=== PATIENT | female | born 1950 | race Caucasian/White ===

== ENCOUNTER 2020-05-02 10:54 | Outpatient (REF) | payer MEDICARE, OTHER, SELFPAY ==
--- NOTE | 2020-05-02 11:00 | MM_ITS ---
EXAMINATION: MM SCREENING DIGITAL BREAST TOMOSYNTHESIS, BILATERAL CLINICAL INFORMATION: Screening. Asymptomatic. The lifetime risk of breast cancer based on the Tyrer-Cuzick Model is 5.3%. COMPARISON: Mammography: January 30, 2019 and studies dating back to June 02, 2010 TECHNIQUE: Digital breast tomosynthesis is performed in both the craniocaudal and mediolateral oblique views along with computer-aided detection (CAD). Synthesized 2D images are generated from the tomosynthesis. FINDINGS: The breasts are almost entirely fatty (ACR BI-RADS breast composition Category a). There are no significant masses, abnormal calcifications, or other abnormalities. MM/MM tomosynthesis screening BI IMPRESSION: There are no significant changes from prior study. ASSESSMENT: BI-RADS 1: Negative RECOMMENDATION: Routine annual mammography screening. This patient's information was entered into a reminder system with a target due date for their next mammogram.
== END 2020-05-02 10:55 | disposition home or self-care (01) ==
LOC: HO.MAMMO 10:54
PROVIDERS: PCP Internal Medicine; Visit Provider Internal Medicine
DX: Z12.31 Encounter for screening mammogram for malignant neoplasm of breast (principal)
CPT/HCPCS: 77063; 77067

== ENCOUNTER 2020-05-06 06:14 | Outpatient (REF) | payer MEDICARE, OTHER, SELFPAY ==
[2020-05-06 07:24] LABS: MANUAL DIFF FLAG NO
[2020-05-06 07:26] LABS: Basophils Percent Auto 0.6 % (0-2); Eosinophils Percent Auto 0.2 % (0-4); Hematocrit 43.1 % (37-47); Hemoglobin 14.3 g/dl (12.0-16.0); Imm Gran Abs Auto 0.02 X10*3/uL (0.00-0.03); Imm Gran Pct Auto 0.3 % (0.0-0.4); Lymphocytes Absolute Auto 1.7 X10*3/uL (1.2-4.9); Lymphocytes Percent Auto 26.9 % (20-40); Mean Corpuscular HGB Conc 33.2 g/dl (31.0-35.0); Mean Corpuscular Hemoglobin 31.6 pg (27.0-33.0); Mean Corpuscular Volume 95.4 fL (80-98); Mean Platelet Volume 10.2 fL (9.4-12.3); Monocytes Absolute Auto 0.6 X10*3/uL (0.1-1.2); Monocytes Percent Auto 10.1 % (2-11); Neutrophils Absolute Auto 3.8 X10*3/uL (2.0-8.3); Neutrophils Percent Auto 61.9 % (45-73); Platelet Count 363 X10*3/uL (160-400); Red Blood Count 4.52 X10*6/uL (4.20-5.50); Red Cell Distribution Width 12.9 % (11.0-16.0); White Blood Count 6.2 X10*3/uL (4.8-10.8)
[2020-05-06 07:27] LABS: Glucose Urine UA NEG (NEG); Leukocyte Esterase Urine 2+ (NEG); Nitrite Urine NEG (NEG); PH 5.5 (5.0-8.0); Specific Gravity - Urine >= 1.030 (1.005-1.025); Urine Blood TRACE (NEG); Urine Ketones NEG (NEG); Urine Protein NEG (NEG-TRACE)
[2020-05-06 07:29] LABS: Appearance Urine CLOUDY; Color Urine YELLOW
[2020-05-06 07:44] LABS: Alanine Aminotransferase 12 U/L (0-31); Albumin Level 4.5 g/dL (3.5-5.0); Alkaline Phosphatase 71 U/L (39-117); Anion Gap 12 (12-20); Aspartate Amino Transferase 11 U/L (5-31); Bilirubin Total 0.6 mg/dL (0.0-1.0); Blood Urea Nitrogen 28 mg/dL (9-16); Calcium 9.9 mg/dL (8.4-10.2); Carbon Dioxide 25 mmol/L (22-29); Chloride 104 mmol/L (96-108); Cholesterol 289 mg/dL; Estimated Glomerular Filt Rate > 60; Glucose Fasting 85 mg/dL (60-99); HDL Cholesterol 65 mg/dL; Iron 125 mcg/dL (30-160); LDL Cholesterol Calculated 208 mg/dl; Percent Iron Saturation 39 % (15-50); Potassium 4.3 mmol/l (3.3-5.1); Sodium 137 mmol/L (135-145); Total Iron Binding Capacity 321 mcg/dL (228-428); Total Protein 6.8 g/dL (6.5-8.0); Triglycerides 84 mg/dL; Unsaturated Iron Binding 196 ug/dL
[2020-05-06 07:46] LABS: Alanine Aminotransferase 12 U/L (0-31); Albumin Level 4.5 g/dL (3.5-5.0); Alkaline Phosphatase 71 U/L (39-117); Anion Gap 12 (12-20); Aspartate Amino Transferase 13 U/L (5-31); Bilirubin Total 0.6 mg/dL (0.0-1.0); Blood Urea Nitrogen 27 mg/dL (9-16); Calcium 9.9 mg/dL (8.4-10.2); Carbon Dioxide 26 mmol/L (22-29); Chloride 104 mmol/L (96-108); Estimated Glomerular Filt Rate > 60; Glucose Fasting 85 mg/dL (60-99); Potassium 4.3 mmol/l (3.3-5.1); Sodium 138 mmol/L (135-145); Total Protein 6.8 g/dL (6.5-8.0)
[2020-05-06 07:49] LABS: Bacteria Urine 3+ /LPF; Mucus Urine TRACE /LPF; RBC Urine 0-2 /HPF (0); Squamous Epithelial Cell Urine 4+ /LPF
[2020-05-06 08:07] LABS: Vitamin D 25-OH Total 48.6 ng/mL (>30)
[2020-05-06 08:41] LABS: Ferritin 124 ng/mL (10-250)
== END 2020-05-06 06:15 | disposition home or self-care (01) ==
LOC: HO.LAB 06:14
PROVIDERS: PCP Internal Medicine; Visit Provider Internal Medicine
DX: E78.00 Pure hypercholesterolemia, unspecified (principal); M19.90 Unspecified osteoarthritis, unspecified site; Z83.2 Family history of diseases of the blood and blood-forming organs and certain disorders involving the immune mechanism
CPT/HCPCS: 36415; 80053; 80061; 81001; 82306; 82728; 83540; 85025

== ENCOUNTER 2020-05-08 09:39 | Outpatient (REF) | payer MEDICARE, OTHER, SELFPAY ==
--- NOTE | 2020-05-08 09:45 | MM_ITS ---
EXAMINATION: BONE DENSITOMETRY CLINICAL INDICATION: Osteopenia. COMPARISON: This is the patient's baseline examination. TECHNIQUE: Using a [employer] DXA System (software version: 13.1) manufactured by [employer], dual-energy x-ray absorptiometry was performed of the lumbar spine and left hip. The images are of good technical quality. Summary results are attached. FINDINGS: AP SPINE L1-L4: BMD 0.743 g/cm2, Z-score -2.2, T-score -3.6, osteoporosis. LEFT FEMUR, NECK: BMD 0.663 g/cm2, Z-score -1.2, T-score -2.7, osteoporosis. LEFT FEMUR, TOTAL: BMD 0.717 g/cm2, Z-score -1.0, T-score -2.3, osteopenia. IDENTIFIED RISK FACTORS: Hysterectomy, menopause. HISTORY OF FRACTURE: None listed. MEDICATIONS: Vitamin D. MM/XR DEXA axial skeleton IMPRESSION: 1. DIAGNOSIS: Osteoporosis based on the lowest T-score value of -3.6 in the lumbar spine applying World Health Organization criteria. 2. 10-YEAR FRACTURE RISK PREDICTION, FRAX: Major osteoporotic fracture (clinical spine, forearm, hip or shoulder) 15.8%. Hip fracture 4.2%. 3. Treatment Recommendations: NOF guidelines recommend consideration for treatment in postmenopausal women and men age 50 and older presenting with the following: -A hip or vertebral (clinical or morphometric) fracture. -T-score less than or equal to -2.5 at the femoral neck or spine after appropriate evaluation to exclude secondary causes. -Low bone mass at the hip or spine and a 10-year fracture probability by FRAX of greater than or equal to 3% for hip fracture or greater than or equal to 20% for major osteoporotic fracture based on the [place] adapted WHO algorithm. 4. Other Recommendations: All treatment decisions require clinical judgment and consideration of individual patient factors, including patient preferences, comorbidities, previous drug use, risk factors not captured in the FRAX model (e.g. frailty, falls, vitamin D deficiency, increased bone turnover, interval significant decline in bone density) and possible under or overestimation of fracture risk by FRAX. Additional medical evaluation for secondary cause of low bone mineral density may be appropriate. FUTURE SCAN RECOMMENDATION: People with diagnosed cases of osteoporosis or at high risk for fracture should have regular bone mineral density tests. For patients eligible for Medicare, routine testing is allowed once every 2 years. The testing frequency can be increased to one year for patients who have rapidly progressing disease, those who are receiving or discontinuing medical therapy to restore bone mass, or have additional risk factors.
== END 2020-05-08 09:40 | disposition home or self-care (01) ==
LOC: HO.MAMMO 09:39
PROVIDERS: PCP Internal Medicine; Visit Provider Internal Medicine
DX: Z78.0 Asymptomatic menopausal state (principal); M85.80 Other specified disorders of bone density and structure, unspecified site
CPT/HCPCS: 77080

== ENCOUNTER 2020-05-14 14:24 | Outpatient (REF) | payer MEDICARE, OTHER, SELFPAY | END 2020-05-14 14:25 | disposition home or self-care (01) | LOC: HO.LNP 14:24 | PROVIDERS: Visit Provider Internal Medicine | DX: Z20.828 Contact with and (suspected) exposure to other viral communicable diseases (principal) | CPT/HCPCS: U0003 ==

== ENCOUNTER 2020-10-13 10:10 | Day surgery (SDC) | payer MEDICARE, OTHER, SELFPAY ==
[2020-10-07 09:19] VITALS: BMI 27.4
--- NOTE | 2020-10-08 14:06 | MHC.SHP ---
Pre-Procedural Eval Section A The patient is an INPATIENT: No The History & Physical has been completed within 30 days and I have reviewed it.: Yes Section B Chief Complaint: Cataract Left eye Allergies: Allergies Allergy/AdvReac Type Severity Reaction Status Date / Time codeine Allergy Itching Verified 10/06/20 16:04 morphine Allergy Itching Verified 10/06/20 16:14 oxycodone [From Percocet] Allergy Itching Verified 10/06/20 16:04 Penicillins Allergy Itching Verified 10/06/20 16:04 Sulfa (Sulfonamide Allergy Itching Verified 10/06/20 16:14 Antibiotics) vancomycin Allergy Itching Verified 10/06/20 16:04 Lzzysba-Yre-Lvj Reductase AdvReac Gastrointestinal Verified 10/06/20 16:04 Inhibitor Upset Plan Diagnosis/Plan: Unchanged I have reviewed the history and physical and performed a pertinent physical examination on my patient. No changes have occurred unless specified.
--- NOTE | 2020-10-10 09:16 | HO.ANESPROP2 ---
Documented by User: Shilpa Garcia 10/10/20 09:17 HPI - Anesthesia Eval Consult details Narrative: 69yo F for Left Cataract Extraction IOL Insertion No prev cataract on record PCP cleared [facility] Past Medical History Medical History Arthritis COVID-19 vaccine series completed High cholesterol History of heartburn Surgical History Surgical History History of breast lump/mass excision History of hysterectomy History of total right hip replacement Hx of colonoscopy Social History Social History Are you a primary director of critical care to a significant other at home: No Do you presently have visiting nurse or other home services: No Smoking Status: Former smoker Smoking Quit Date: many years ago Use of substances other than those prescribed or required for medical reasons: No Are you DNR?: No Advance Directives: No Advance Directives Information Provided: No Advance Directives on File: No Recently lost weight without trying: No Eating poorly because of decreased appetite: No Nutrition Risks: No Nutritional Risk Patient : No Meds Allergies Allergy/AdvReac Type Severity Reaction Status Date / Time codeine Allergy Itching Verified 10/06/20 16:04 morphine Allergy Itching Verified 10/06/20 16:14 oxycodone [From Percocet] Allergy Itching Verified 10/06/20 16:04 Penicillins Allergy Itching Verified 10/06/20 16:04 Sulfa (Sulfonamide Allergy Itching Verified 10/06/20 16:14 Antibiotics) vancomycin Allergy Itching Verified 10/06/20 16:04 Kxwyivi-Liz-Uhf Reductase AdvReac Gastrointestinal Verified 10/06/20 16:04 Inhibitor Upset Home Medications Medication Instructions Recorded Confirmed Last Taken Type No Known Home Meds 10/06/20 10/06/20 Unknown History Exam Exam Date and Time: October 10, 2020 0916 Height,Weight and Vital Signs: Height 5 ft 4 in Weight 72.575 kg Assessment and Plan Assessment Anesthesia Assessment: Chart Reviewed Documented by User: Yesika Sena 10/13/20 12:07 [facility] Past Medical History Medical History Arthritis COVID-19 vaccine series completed High cholesterol History of heartburn Family History Family history of problems with anesthesia: No Surgical History Surgical History History of breast lump/mass excision History of hysterectomy History of total right hip replacement Hx of colonoscopy History of Problems with Anesthesia: No Social History Social History Are you a primary director of critical care to a significant other at home: No Do you presently have visiting nurse or other home services: No Smoking Status: Former smoker Smoking Quit Date: many years ago Use of substances other than those prescribed or required for medical reasons: No Are you DNR?: No Advance Directives: No Advance Directives Information Provided: No Advance Directives on File: No Recently lost weight without trying: No Eating poorly because of decreased appetite: No Nutrition Risks: No Nutritional Risk Patient : No Meds Allergies Allergy/AdvReac Type Severity Reaction Status Date / Time codeine Allergy Itching Verified 10/06/20 16:04 morphine Allergy Itching Verified 10/06/20 16:14 oxycodone [From Percocet] Allergy Itching Verified 10/06/20 16:04 Penicillins Allergy Itching Verified 10/06/20 16:04 Sulfa (Sulfonamide Allergy Itching Verified 10/06/20 16:14 Antibiotics) vancomycin Allergy Itching Verified 10/06/20 16:04 Lltznkz-Fbf-Krm Reductase AdvReac Gastrointestinal Verified 10/06/20 16:04 Inhibitor Upset Home Medications Medication Instructions Recorded Confirmed Last Taken Type No Known Home Meds 10/06/20 10/06/20 Unknown History Exam Height,Weight and Vital Signs: Vital Signs Temp Pulse Resp BP Pulse Ox 10/13/20 11:59 98.8 F 78 16 145/88 H 96 Airway Mallampati Class: III TM Dist: >3cm Neck ROM: Full Heart: RRR Lungs: CTAB Assessment and Plan Assessment Anesthesia Assessment: Anesthesia Plan Discussed and Chart Reviewed Final Anesthetic Review NPO: Yes ASA Class: II Final Preanesthetic Review: No Changes in Pt Med Stat, Meds/Allgs Chart Reviewed, Consent Obtained/Reviewed and Anes Risks/Benef Reviewed Patient Risk: Low Procedure Risk: Low Assessment/Block/Sedation in SS: Assess/Block/Sedation-SS Anesthetic Plan Anesthetic Plan: MAC: Disposition: Standard PACU
[2020-10-13] MEDS: Tetracaine HCl/PF 0.5% Oph Sol 4 ML DROPS 1 DROP EYE-LEFT (11:47)
[2020-10-13] MEDS: Lactated Ringers 500 ML 50 ML IV (11:48)
[2020-10-13] MEDS: Tropicamide 1 % Ophth Sol 3 ML BTL 1 DROP EYE-LEFT ×3 (11:50→12:07)
[2020-10-13] MEDS: Phenylephrine HCL 2.5% Oph SoL 2 ML BOTTLE 1 DROP EYE-LEFT ×3 (11:54→12:10)
[2020-10-13 11:59] VITALS: BP 145/88; PULSE 78; RESP 16; TEMP 37.1; O2SAT 96
--- NOTE | 2020-10-13 12:23 | HO.PNOPHT ---
Ophthalmology Procedure Procedure Date of Service: 10/13/20 Ophthalmology Viscoelastic: Healon Duet Dual Pack Pro Ophthalmology Lenses: TECRYLEE [id number] (20) Procedure Notes: PREOPERATIVE DIAGNOSIS: Decreased visual acuity left eye secondary to cataract POSTOPERATIVE DIAGNOSIS: Same PROCEDURE: Left cataract extraction with intraocular lens insertion SURGEON: Selvin Padron M.D. ANESTHESIA: Topical/MAC ESTIMATED BLOOD LOSS: None COMPLICATIONS: None After obtaining informed consent, the patient was brought to the operation room suite and placed in the supine position. After adequate sedation per anesthesia, topical drops of Tetracaine were given to the left eye. The eye was then prepped and draped in the usual sterile fashion. The operating room microscope was then positioned over the operative eye and a lid speculum placed. A paracentesis was created. Viscoelastic was then instilled into the anterior chamber. A three plane incision was then created temporally, utilizing a 2.85 mm keratome. Capsulotomy forceps were then utilized to create a circular tear capsulotomy. Hydrodissection and hydrodelineation were carried out until adequate mobilization of the nucleus occurred. Phacoemulsification was then utilized to remove the dense central nucleus followed by removal of the cortical material utilizing the automated aspiration irrigation unit. Viscoat elastic was instilled into the posterior capsular bag followed by placement of a posterior chamber intraocular lens without difficulty. The residual Viscoat elastic was then removed utilizing the automated IA machine. The wound was check and found to be watertight. The patient tolerated the procedure well and the lid speculum was removed. Intracameral injection of Vigamox 0.1 mL followed by a subtenon injection of Kenalog-40 0.2 mL were administered. The patient will be seen in the a.m.
[2020-10-13 12:48] VITALS: BP 138/63; PULSE 70; RESP 18; TEMP 36.7; O2SAT 100
== END 2020-10-13 13:31 | disposition home or self-care (01) ==
PROVIDERS: PCP Internal Medicine; Visit Provider Ophthalmology
PROC: (CPT 66985; principal; 2020-10-13 12:50)
DX: H25.12 Age-related nuclear cataract, left eye (principal); H54.7 Unspecified visual loss; Z87.891 Personal history of nicotine dependence; Z88.0 Allergy status to penicillin; Z88.2 Allergy status to sulfonamides; Z88.8 Allergy status to other drugs, medicaments and biological substances
CPT/HCPCS: 66984; J2250; J3300; V2632

== ENCOUNTER 2020-11-03 10:09 | Day surgery (SDC) | payer MEDICARE, OTHER, SELFPAY ==
[2020-10-07 09:22] VITALS: BMI 27.4
--- NOTE | 2020-10-17 11:07 | HP_ITS ---
DATE OF SERVICE: 11/03/2020 The patient was seen for preop evaluation prior cataract surgery with Dr. Martinez on October 06. Presently, she is on no medications. She feels well. REVIEW OF SYSTEMS: Essentially negative except for some occasional acid reflux disease. PAST MEDICAL HISTORY: Significant for hysterectomy, bladder suspension, and right total hip replacement. FAMILY HISTORY: Noncontributory. SOCIAL HISTORY: She is . Retired. Worked as a nurse. PHYSICAL EXAMINATION: GENERAL: She is awake and alert, in no distress. VITAL SIGNS: Temperature is 98.2, pulse 76, respirations 12, blood pressure 148/84, 98% oxygen saturation. HEENT: Pupils are equal. TMs clear. Pharynx clear. NECK: Supple. No lymph nodes, bruits, or masses. HEART: Sounds S1 and S2. Regular rate. LUNGS: Clear. ABDOMEN: Soft, nontender. Positive bowel sounds. No HSM. EXTREMITIES: No clubbing, cyanosis, or edema. 1+ pulses. NEUROLOGICAL: Nonfocal. Cranial nerves II through XII are intact. She is a nonsmoker. ALLERGIES: SHE LISTS ALLERGIES TO PENICILLIN, VANCOMYCIN, AND CODEINE. ASSESSMENT AND PLAN: 1. Preop cataracts, medically stable for the proposed procedure. 2. Elevated cholesterol, intolerant of statins. 3. Systolic hypertension. Continue to follow. 4. History of colon polyps, due for colonoscopy this year. 5. Diverticulosis. No complaints. 6. Osteoarthritis of the knees. She sees Ortho as needed. She also lists an allergy to sulfa drugs. Gabriel Smith MD FC/GWENL / [phone]
--- NOTE | 2020-10-29 15:38 | MHC.SHP ---
Pre-Procedural Eval Section A The patient is an INPATIENT: No The History & Physical has been completed within 30 days and I have reviewed it.: Yes Section B Chief Complaint: Cataract Right Eye Allergies: Allergies Allergy/AdvReac Type Severity Reaction Status Date / Time codeine Allergy Itching Verified 10/06/20 16:04 morphine Allergy Itching Verified 10/06/20 16:14 oxycodone [From Percocet] Allergy Itching Verified 10/06/20 16:04 Penicillins Allergy Itching Verified 10/06/20 16:04 Sulfa (Sulfonamide Allergy Itching Verified 10/06/20 16:14 Antibiotics) vancomycin Allergy Itching Verified 10/06/20 16:04 Ojoezbr-Uim-Wpe Reductase AdvReac Gastrointestinal Verified 10/06/20 16:04 Inhibitor Upset Plan Diagnosis/Plan: Unchanged I have reviewed the history and physical and performed a pertinent physical examination on my patient. No changes have occurred unless specified.
--- NOTE | 2020-10-31 10:15 | HO.ANESPROP2 ---
Documented by User: Shilpa Garcia 10/31/20 10:16 HPI - Anesthesia Eval Consult details Narrative: 69yo F for Right Cataract Extraction IOL Insertion PCP Cleared Left eye 10/13: Fent 50, Midaz 2 *mult med allergies* PMFSH Past Medical History Medical History Arthritis COVID-19 vaccine series completed High cholesterol History of heartburn Family History Family history of problems with anesthesia: No Surgical History Surgical History (Updated 10/30/20 @ 08:26 by Melony Bhatt) History of breast lump/mass excision History of cataract extraction History of hysterectomy History of total right hip replacement Hx of colonoscopy History of Problems with Anesthesia: No Social History Social History Are you a primary pharmacy customer care specialist to a significant other at home: No Do you presently have visiting nurse or other home services: No Use of substances other than those prescribed or required for medical reasons: No Have you been hit, kicked, punched, or otherwise hurt by someone within the past year? If so, by whom?: No Are you DNR?: No Advance Directives: No Advance Directives Information Provided: No Advance Directives on File: No Recently lost weight without trying: No Eating poorly because of decreased appetite: No Nutrition Risks: No Nutritional Risk Meds Allergies Allergy/AdvReac Type Severity Reaction Status Date / Time codeine Allergy Itching Verified 10/06/20 16:04 morphine Allergy Itching Verified 10/06/20 16:14 oxycodone [From Percocet] Allergy Itching Verified 10/06/20 16:04 Penicillins Allergy Itching Verified 10/06/20 16:04 Sulfa (Sulfonamide Allergy Itching Verified 10/06/20 16:14 Antibiotics) vancomycin Allergy Itching Verified 10/06/20 16:04 Bbddlbf-Thi-Xqb Reductase AdvReac Gastrointestinal Verified 10/06/20 16:04 Inhibitor Upset Home Medications Medication Instructions Recorded Confirmed Last Taken Type No Known Home Meds 10/06/20 10/06/20 Unknown History Exam Exam Date and Time: October 31, 2020 1015 Height,Weight and Vital Signs: Height 5 ft 4 in Weight 72.575 kg Assessment and Plan Assessment Anesthesia Assessment: Chart Reviewed Documented by User: Tricia Connie 11/03/20 11:14 PMF[facility] Past Medical History Medical History Arthritis COVID-19 vaccine series completed High cholesterol History of heartburn Surgical History Surgical History (Updated 10/30/20 @ 08:26 by Melony Bhatt) History of breast lump/mass excision History of cataract extraction History of hysterectomy History of total right hip replacement Hx of colonoscopy Social History Social History Are you a primary pharmacy customer care specialist to a significant other at home: No Do you presently have visiting nurse or other home services: No Use of substances other than those prescribed or required for medical reasons: No Have you been hit, kicked, punched, or otherwise hurt by someone within the past year? If so, by whom?: No Are you DNR?: No Advance Directives: No Advance Directives Information Provided: No Advance Directives on File: No Recently lost weight without trying: No Eating poorly because of decreased appetite: No Nutrition Risks: No Nutritional Risk Meds Allergies Allergy/AdvReac Type Severity Reaction Status Date / Time codeine Allergy Itching Verified 10/06/20 16:04 morphine Allergy Itching Verified 10/06/20 16:14 oxycodone [From Percocet] Allergy Itching Verified 10/06/20 16:04 Penicillins Allergy Itching Verified 10/06/20 16:04 Sulfa (Sulfonamide Allergy Itching Verified 10/06/20 16:14 Antibiotics) vancomycin Allergy Itching Verified 10/06/20 16:04 Gmblaok-Xeo-Dkn Reductase AdvReac Gastrointestinal Verified 10/06/20 16:04 Inhibitor Upset Home Medications Medication Instructions Recorded Confirmed Last Taken Type No Known Home Meds 10/06/20 10/06/20 Unknown History Exam Airway Mallampati Class: II (Crowns lateral) TM Dist: >3cm Neck ROM: Full Heart: RrR Lungs: CTa Assessment and Plan Assessment Anesthesia Assessment: Anesthesia Plan Discussed and Chart Reviewed Final Anesthetic Review NPO: Yes ASA Class: II Final Preanesthetic Review: No Changes in Pt Med Stat and Consent Obtained/Reviewed Patient Risk: Intermediate Procedure Risk: Intermediate Anesthetic Plan Anesthetic Plan: MAC: Disposition: Standard PACU
[2020-11-03] MEDS: Tetracaine HCl/PF 0.5% Oph Sol 4 ML DROPS 1 DROP EYE-RIGHT (10:57)
[2020-11-03 10:58] VITALS: BP 152/92; PULSE 83; RESP 16; TEMP 37.3; O2SAT 96
[2020-11-03] MEDS: Tropicamide 1 % Ophth Sol 3 ML BTL 1 DROP EYE-RIGHT ×3 (11:00→11:14)
[2020-11-03] MEDS: Phenylephrine HCL 2.5% Oph SoL 2 ML BOTTLE 1 DROP EYE-RIGHT ×3 (11:04→11:22)
[2020-11-03] MEDS: Lactated Ringers 500 ML 50 ML IV (11:04)
--- NOTE | 2020-11-03 12:10 | HO.PNOPHT ---
Ophthalmology Procedure Procedure Date of Service: 11/03/20 Ophthalmology Viscoelastic: Healon Duet Dual Pack Pro Ophthalmology Lenses: TECNIS [id number] (19.5) Procedure Notes: PREOPERATIVE DIAGNOSIS: Decreased visual acuity right eye secondary to cataract POSTOPERATIVE DIAGNOSIS: Same PROCEDURE: Right cataract extraction with intraocular lens insertion SURGEON: Selvin Padron M.D. ANESTHESIA: Topical/MAC ESTIMATED BLOOD LOSS: None COMPLICATIONS: None After obtaining informed consent, the patient was brought to the operating room suite and placed in the supine position. After adequate sedation per anesthesia, topical drops of Tetracaine were given to the right eye. The eye was then prepped and draped in the usual sterile fashion. The operating room microscope was then positioned over the operative eye and a lid speculum placed. A paracentesis was created. Viscoelastic was then instilled into the anterior chamber. A three plane incision was then created temporally, utilizing a 2.85 mm keratome. Capsulotomy forceps were then utilized to create a circular tear capsulotomy. Hydrodissection and hydrodelineation were carried out until adequate mobilization of the nucleus occurred. Phacoemulsification was then utilized to remove the dense central nucleus followed by removal of the cortical material utilizing the automated aspiration irrigation unit. Viscoelastic was instilled into the posterior capsular bag followed by placement of a posterior chamber intraocular lens without difficulty. The residual Viscoelastic was then removed utilizing the automated IA machine. The wound was checked and found to be watertight. The patient tolerated the procedure well and the lid speculum was removed. Intracameral injection of Vigamox 0.1 mL followed by a subtenon injection of Kenalog-40 0.2 mL were administered. The patient will be seen in the a.m.
[2020-11-03 12:33] VITALS: BP 133/79; PULSE 71; RESP 18; TEMP 36.6; O2SAT 99
== END 2020-11-03 13:50 | disposition home or self-care (01) ==
PROVIDERS: PCP Internal Medicine; Visit Provider Ophthalmology
PROC: (CPT 66985; principal; 2020-11-03 12:30)
DX: H25.11 Age-related nuclear cataract, right eye (principal); H52.4 Presbyopia; Q14.1 Congenital malformation of retina; K21.9 Gastro-esophageal reflux disease without esophagitis; Z87.891 Personal history of nicotine dependence; Z88.0 Allergy status to penicillin; Z88.1 Allergy status to other antibiotic agents; Z88.2 Allergy status to sulfonamides; Z88.8 Allergy status to other drugs, medicaments and biological substances
CPT/HCPCS: 66984; J3300; V2632

== ENCOUNTER 2021-06-09 11:59 | Outpatient (REF) | payer MEDICARE, OTHER, SELFPAY ==
--- NOTE | ~2021-06-09 | MM_ITS ---
EXAMINATION: MM SCREENING DIGITAL BREAST TOMOSYNTHESIS, BILATERAL CLINICAL INFORMATION: Screening. Asymptomatic. The lifetime risk of breast cancer based on the Tyrer-Cuzick Model is 4%. COMPARISON: Mammography: 05/02/2020, 01/30/2019, 11/18/2017 TECHNIQUE: Digital breast tomosynthesis is performed in both the craniocaudal and mediolateral oblique views along with computer-aided detection (CAD). Synthesized 2D images are generated from the tomosynthesis. FINDINGS: The breasts are almost entirely fatty (ACR BI-RADS breast composition Category a). There are no significant masses, abnormal calcifications, or other abnormalities. Background stromal and fibroglandular densities are stable. No developing density. There is a dermal lesion again seen overlying the mid lower right breast on MLO view. The axilla are unremarkable. MM/MM tomosynthesis screening BI IMPRESSION: No mammographic evidence of malignancy. ASSESSMENT: BI-RADS 2: Benign RECOMMENDATION: Routine annual mammography screening. This patient's information was entered into a reminder system with a target due date for their next mammogram.
== END 2021-06-09 12:00 | disposition home or self-care (01) ==
LOC: HO.MAMMO 11:59
PROVIDERS: PCP Internal Medicine; Visit Provider Internal Medicine
DX: Z12.31 Encounter for screening mammogram for malignant neoplasm of breast (principal)
CPT/HCPCS: 77063; 77067

== ENCOUNTER 2021-10-21 09:21 | Day surgery (SDC) | payer MEDICARE, OTHER, SELFPAY ==
[2021-10-15 12:06] VITALS: BMI 26.4
--- NOTE | 2021-10-20 09:19 | P.CONAN_ITS ---
Documented by User: Shilpa Garcia NP 10/20/21 09:19 HPI - Anesthesia Eval Consult details Narrative: 70yo F for Colonoscopy *Multiple Med Allergies* PMFSH Past Medical History Medical History Arthritis COVID-19 vaccine series completed High cholesterol History of heartburn Family History Family history of problems with anesthesia: No Surgical History Surgical History (Updated 10/15/21 @ 12:01 by Melony Bhatt RN) History of breast lump/mass excision History of cataract extraction History of hysterectomy History of total right hip replacement Hx of colonoscopy History of Problems with Anesthesia: No Social History Social History Are you a primary child care centre director to a significant other at home: No Do you presently have visiting nurse or other home services: No Patient Tobacco Use Status: Former Tobacco user Tobacco use type: Cigarette Smoked in Last 30 Days: No Use of substances other than those prescribed or required for medical reasons: No Are you DNR?: Yes Advance Directives: No Advance Directives Information Provided: Yes Recently lost weight without trying: No Nutrition Risks: No Nutritional Risk Meds Allergies Allergy/AdvReac Type Severity Reaction Status Date / Time codeine Allergy Itching Verified 10/15/21 12:01 morphine Allergy Itching Verified 10/15/21 12:01 oxycodone [From Percocet] Allergy Itching Verified 10/15/21 12:01 Penicillins Allergy Itching Verified 10/15/21 12:01 Sulfa (Sulfonamide Allergy Itching Verified 10/15/21 12:01 Antibiotics) vancomycin Allergy Itching Verified 10/15/21 12:01 Wveotrf-NLX-ZnS Reductase AdvReac Gastrointestinal Verified 10/15/21 12:01 Inhibitor Upset [Bsvxcge-Wbf-Czp Reductase Inhibitor] Home Medications Medication Instructions Recorded Confirmed Last Taken Type ibuprofen 200 mg tablet (Advil) 400 mg PO Q8H PRN 10/15/21 10/15/21 Unknown History Exam Exam Date and Time: October 20, [id number] Height,Weight and Vital Signs: Height 5 ft 4 in Weight 69.853 kg Assessment and Plan Assessment Anesthesia Assessment: Chart Reviewed Final Anesthetic Review Family History of Problems with Anesthesia: No History of Problems with Anesthesia: No Documented by User: Krzysztof Miller MD 10/21/21 17:31 PMFSH Past Medical History Medical History Arthritis COVID-19 vaccine series completed High cholesterol History of heartburn Surgical History Surgical History (Updated 10/15/21 @ 12:01 by Melony Bhatt, PRINCESS) History of breast lump/mass excision History of cataract extraction History of hysterectomy History of total right hip replacement Hx of colonoscopy Social History Social History Are you a primary child care centre director to a significant other at home: No Do you presently have visiting nurse or other home services: No Patient Tobacco Use Status: Former Tobacco user Tobacco use type: Cigarette Smoked in Last 30 Days: No Use of substances other than those prescribed or required for medical reasons: No Are you DNR?: Yes Advance Directives: No Advance Directives Information Provided: Yes Recently lost weight without trying: No Nutrition Risks: No Nutritional Risk Meds Allergies Allergy/AdvReac Type Severity Reaction Status Date / Time codeine Allergy Itching Verified 10/15/21 12:01 morphine Allergy Itching Verified 10/15/21 12:01 oxycodone [From Percocet] Allergy Itching Verified 10/15/21 12:01 Penicillins Allergy Itching Verified 10/15/21 12:01 Sulfa (Sulfonamide Allergy Itching Verified 10/15/21 12:01 Antibiotics) vancomycin Allergy Itching Verified 10/15/21 12:01 Smhmkvi-MGC-JkC Reductase AdvReac Gastrointestinal Verified 10/15/21 12:01 Inhibitor Upset [Maunvfl-Zrt-Usd Reductase Inhibitor] Home Medications Medication Instructions Recorded Confirmed Last Taken Type ibuprofen 200 mg tablet (Advil) 400 mg PO Q8H PRN 10/15/21 10/15/21 Unknown History Exam Airway Mallampati Class: III TM Dist: >3cm Neck ROM: Full Loose/Missing/Broken Teeth: Yes (Chipped teeth ) Heart: S1 , S2 Lungs: b/l breath sounds Assessment and Plan Assessment Anesthesia Assessment: Anesthesia Plan Discussed Final Anesthetic Review NPO: Yes ASA Class: II Final Preanesthetic Review: Meds/Allgs Chart Reviewed, Consent Obtained/Reviewed and Anes Risks/Benef Reviewed Patient Risk: Intermediate Procedure Risk: Intermediate Anesthetic Plan Anesthetic Plan: MAC: Disposition: Standard PACU
--- NOTE | ~2021-10-21 | CT_ITS ---
EXAMINATION: CT COLONOGRAPHY SCREENING CLINICAL INFORMATION: Incomplete colonoscopy. Diverticulosis COMPARISON: None. TECHNIQUE: CT colonography. Helical images of the abdomen and pelvis were performed using a Multidetector device after gas insufflation in the supine and prone positions. Source data was reviewed. Extensive 3-D postprocessing was performed on a separate workstation. 2-D and 3-D analysis was performed. Endoluminal, virtual fly through technique was utilized. The endoluminal, virtual postprocessing could only be performed on the prone series DLP: 448 mGy-cm. FINDINGS: Digital Customer Sales Distributor: There has been previous right hip replacement which causes artifact. Bowel preparation: Suboptimal. There is a large amount retained fecal residue and fluid. This limits the exam Distention: Suboptimal distention. On the supine series the rectal to may not be within the rectum. No immediate complication was reported. Colonic findings: The supine series is essentially nondiagnostic. The retained fecal residue, fluid and incomplete distention preclude assessment for colonic masses or polyps. The prone series demonstrates gas within most of the colon. There is sigmoid wall thickening with muscular hypertrophy and luminal narrowing and there are numerous diverticula. No large colonic mass or polyp demonstrated. Noncolonic findings: There is a small hiatal hernia. There is an approximately 2.2 cm calcified gallstone. Artifact related to right hip replacement. CT/CT colonography dx wo con IMPRESSION: Limited study. Retained fecal residue, fluid and incomplete distention preclude assessment for small or moderate-sized abnormalities. Sigmoid diverticula. No large mass or polyp demonstrated
[2021-10-21 09:44] VITALS: BMI 25.2
[2021-10-21 09:51] VITALS: BP 148/88; PULSE 82; RESP 16; TEMP 36.8; O2SAT 100
[2021-10-21] MEDS: Lactated Ringers 1,000 ML 100 ML IVCONT (10:16)
--- NOTE | 2021-10-21 12:07 | P.BOP_ITS ---
Brief Operative Note Date of Service: 10/21/21 Pre-op diagnosis: Screening Post-op diagnosis: other (Diverticulosis) Procedure: Incomplete colonoscopy to 30cm Surgeon: Efrem Ling Anesthesia: MAC Was an Fabric And Accessories Estimator used for this Procedure?: No Estimated blood loss (mL): 0 Pathology: none sent Condition: stable Disposition: PACU
[2021-10-21 12:08] VITALS: BP 127/73; PULSE 75; RESP 16; TEMP 36.7; O2SAT 97
[2021-10-21 12:13] VITALS: BP 111/70; PULSE 64; RESP 18; TEMP 36.7; O2SAT 98
--- NOTE | 2021-10-21 12:30 | OP_ITS ---
SURGEON: Efrem Ling MD INDICATIONS: The patient presents for evaluation of colorectal cancer screening and prior history of tubular adenoma of the colon. Full consent was obtained from her for this, including risks of bleeding and perforation. PREOPERATIVE DIAGNOSIS: POSTOPERATIVE DIAGNOSIS: PROCEDURE PERFORMED: Colonoscopy to the sigmoid colon. ESTIMATED BLOOD LOSS: COMPLICATIONS: ANESTHESIA: Monitored anesthesia care. ASSISTANTS: SPECIMENS: PREOPERATIVE DIAGNOSES: Colorectal cancer screening and personal history of tubular adenoma of the colon. POSTOPERATIVE DIAGNOSES: Colorectal cancer screening and personal history of tubular adenoma of the colon, incomplete colonoscopy to the sigmoid colon, diverticulosis and internal hemorrhoids. DESCRIPTION OF PROCEDURE: The patient was placed in the left lateral decubitus position. The digital rectal exam revealed no abnormalities. The Olympus video pediatric colonoscope was entered into the rectum and advanced only to between 20 and 30 cm. At this level was extensive diverticulosis and spasm. Despite abdominal wall pressure, and lengthy attempt advancing past the sigmoid colon, I was unable to do so. I never really saw proximal lumen. I did not visualize any sign of colitis, polyps, nor angiodysplasia. The scope was retroflexed in the rectum visualizing internal hemorrhoids, but no other pathology. The rectal mucosa appeared normal. The scope was straightened and withdrawn from the patient. She tolerated the procedure well and was returned to recovery area in stable condition. IMPRESSION: 1. Incomplete colonoscopy to the sigmoid colon. 2. Diverticulosis. 3. Internal hemorrhoids. PLAN: Given that she has already been cleaned out, I shall attempt to schedule a CT scan with colonography. She will be followed up after that as needed. If the colonography is negative and she otherwise feels well, then she would not need any further screening colonoscopies given exams previously in 2004, 2010, and 2015. This has been discussed with her . MD LEIA Reyes/LAKSMHI / [id number]
== END 2021-10-21 15:01 | disposition home or self-care (01) ==
PROVIDERS: PCP Internal Medicine; Visit Provider Internal Medicine
PROC: 0DJD8ZZ Inspection of Lower Intestinal Tract, Via Natural or Artificial Opening Endoscopic (ICD-10-PCS; CPT 45378; principal; 2021-10-21 10:40)
DX: Z12.11 Encounter for screening for malignant neoplasm of colon (principal); Z86.010 Personal history of colon polyps; K57.30 Diverticulosis of large intestine without perforation or abscess without bleeding; K64.8 Other hemorrhoids; K44.9 Diaphragmatic hernia without obstruction or gangrene; K80.80 Other cholelithiasis without obstruction; Z96.641 Presence of right artificial hip joint; Z79.1 Long term (current) use of non-steroidal anti-inflammatories (NSAID); Z88.0 Allergy status to penicillin; Z88.1 Allergy status to other antibiotic agents; Z88.2 Allergy status to sulfonamides; Z88.8 Allergy status to other drugs, medicaments and biological substances; Z87.891 Personal history of nicotine dependence
CPT/HCPCS: G0104; 74261

== ENCOUNTER 2022-02-08 08:19 | Day surgery (SDC) | payer MEDICARE, SELFPAY ==
[2022-02-08 08:57] VITALS: BMI 24.7
[2022-02-08 09:02] VITALS: BP 159/94; PULSE 99; RESP 18; TEMP 37.3; O2SAT 99
--- NOTE | 2022-02-08 09:08 | HO.ANESPROP2 ---
HPI - Anesthesia Eval Consult details Narrative: 71 yo female patient for colonoscopy [facility] Past Medical History Medical History Arthritis COVID-19 vaccine series completed High cholesterol History of heartburn Family History Family history of problems with anesthesia: No Surgical History Surgical History History of breast lump/mass excision History of cataract extraction History of hysterectomy History of total right hip replacement Hx of colonoscopy History of Problems with Anesthesia: No Social History Social History Are you a primary critical care registered nurse to a significant other at home: No Do you presently have visiting nurse or other home services: No Patient Tobacco Use Status: Former Tobacco user Tobacco use type: Cigarette Use of substances other than those prescribed or required for medical reasons: No Have you been hit, kicked, punched, or otherwise hurt by someone within the past year? If so, by whom?: No Are you DNR?: No Advance Directives: No Advance Directives Information Provided: Yes Meds Allergies Allergy/AdvReac Type Severity Reaction Status Date / Time codeine Allergy Itching Verified 02/02/22 14:23 morphine Allergy Itching Verified 02/02/22 14:23 oxycodone [From Percocet] Allergy Itching Verified 02/02/22 14:23 Penicillins Allergy Itching Verified 02/02/22 14:23 Sulfa (Sulfonamide Allergy Itching Verified 02/02/22 14:23 Antibiotics) vancomycin Allergy Itching Verified 02/02/22 14:23 Nwxphww-KHZ-PyY Reductase AdvReac Gastrointestinal Verified 02/02/22 14:23 Inhibitor Upset [Mlrzlfv-Oyg-Wgr Reductase Inhibitor] Home Medications Medication Instructions Recorded Confirmed Last Taken Type ibuprofen 200 mg tablet (Advil) 400 mg PO Q8H PRN Pain 10/15/21 10/15/21 Unknown History Exam Exam Date and Time: February 08, 202208 Height,Weight and Vital Signs: Height 5 ft 4 in Weight 65.317 kg Vital Signs Temp Pulse Resp BP Pulse Ox O2 Del Method 02/08/22 09:02 99.2 F 99 18 159/94 H 99 Room Air Airway Mallampati Class: III TM Dist: >3cm Neck ROM: Full Loose/Missing/Broken Teeth: No (Crowns sides) Heart: RRR Lungs: CTAB Assessment and Plan Assessment Anesthesia Assessment: Anesthesia Plan Discussed and Chart Reviewed Final Anesthetic Review Family History of Problems with Anesthesia: No History of Problems with Anesthesia: No NPO: Yes ASA Class: II Final Preanesthetic Review: No Changes in Pt Med Stat, Meds/Allgs Chart Reviewed, Consent Obtained/Reviewed and Anes Risks/Benef Reviewed Patient Risk: Low Procedure Risk: Low Assessment/Block/Sedation in SS: Assess/Block/Sedation-SS Anesthetic Plan Anesthetic Plan: MAC: Disposition: Standard PACU
[2022-02-08] MEDS: Lactated Ringers 1,000 ML 100 ML IVCONT (09:28)
[2022-02-08 10:23] VITALS: BP 112/57; PULSE 70; RESP 16; TEMP 36.6; O2SAT 97
--- NOTE | 2022-02-08 10:26 | PM.OP ---
Brief Operative Note Date of Service: 02/08/22 Pre-op diagnosis: + Cologuard Post-op diagnosis: other (Diverticulosis, Mucosal inflammation in cecum) Procedure: Colonoscopy to the cecum and TI with biopsies Surgeon: Efrem Ling Anesthesia: MAC Was an Classroom Technology Technician used for this Procedure?: No Estimated blood loss (mL): 2.0 Pathology: other (A. Cecal biopsies) Condition: stable Disposition: PACU
[2022-02-08 10:36] VITALS: BP 124/40; PULSE 67; RESP 16; O2SAT 98
[2022-02-08 10:50] VITALS: BP 126/60; PULSE 60; RESP 16; TEMP 36.8; O2SAT 98
--- NOTE | 2022-02-08 11:02 | OP_ITS ---
02/08/2022 SURGEON: Efrem Ling MD INDICATIONS: The patient presents for evaluation of positive Cologuard test. Full consent has been obtained from her for this, including risks of bleeding and perforation. PREOPERATIVE DIAGNOSIS: Positive Cologuard. POSTOPERATIVE DIAGNOSIS: PROCEDURE PERFORMED: Colonoscopy to cecum and terminal ileum. ESTIMATED BLOOD LOSS: COMPLICATIONS: ANESTHESIA: Monitored anesthesia care. ASSISTANTS: SPECIMENS: POSTOPERATIVE DIAGNOSES: Positive Cologuard, diverticulosis, internal hemorrhoids, mucosal inflammation of the cecum. DESCRIPTION OF PROCEDURE: The patient was placed in the left lateral decubitus position. The digital rectal exam revealed no abnormalities. The Olympus video pediatric colonoscope was entered into the rectum and advanced to the cecum. Advancement past the sigmoid colon was somewhat difficult due to the significant diverticulosis and probable adhesions. However, once in the cecum, I did identify a normal-appearing cecal pouch other than a single area on a fold that had some inflammation and edema, but was not consistent with a mass nor neoplasm. The terminal ileum was cannulated and appeared normal. The scope withdrawn back in the colon. The ileocecal valve appeared normal. Biopsies were obtained from the small area of mucosal inflammation. The remainder of the cecum appeared normal. The scope was then slowly withdrawn assessing all mucosal surfaces carefully. Preparation was excellent. I did not visualize any sign of polyps, colitis, nor angiodysplasia. There was a significant amount of diverticulosis in the sigmoid colon. In the rectum, the scope was retroflexed visualizing internal hemorrhoids but no other pathology. The rectal mucosa appeared normal. The scope was straightened and withdrawn from the patient. She tolerated the procedure well and was returned to the recovery area in stable condition. IMPRESSION: 1. Diverticulosis. 2. Internal hemorrhoids. 3. Area of some mucosal inflammation in cecum, status post biopsy. PLAN: Theoretically the patient should have a repeat colonoscopy in 5 years given her previous history of tubular adenoma of the colon removed in 2004 and 2010. She will otherwise see me on a p.r.n. basis. This has been discussed with her . MD LEIA Reyes/LAKSHMI / [id number] VARSHA
== END 2022-02-08 12:00 | disposition home or self-care (01) ==
PROVIDERS: PCP Internal Medicine; Visit Provider Internal Medicine
PROC: 0DJD8ZZ Inspection of Lower Intestinal Tract, Via Natural or Artificial Opening Endoscopic (ICD-10-PCS; CPT 45378; principal; 2022-02-08 09:30)
DX: R19.5 Other fecal abnormalities (principal); K57.30 Diverticulosis of large intestine without perforation or abscess without bleeding; K64.8 Other hemorrhoids; K52.9 Noninfective gastroenteritis and colitis, unspecified; Z86.010 Personal history of colon polyps
CPT/HCPCS: 45380; 88305

== ENCOUNTER 2022-06-14 11:42 | Outpatient (REF) | payer MEDICARE, SELFPAY ==
--- NOTE | ~2022-06-14 | MM_ITS ---
EXAMINATION: MM SCREENING DIGITAL BREAST TOMOSYNTHESIS, BILATERAL CLINICAL INFORMATION: Screening. Asymptomatic. The lifetime risk of breast cancer based on the Tyrer-Cuzick Model is 4%. COMPARISON: Mammography: 06/09/2021, 05/02/2020, 01/30/2019 TECHNIQUE: Digital breast tomosynthesis is performed in both the craniocaudal and mediolateral oblique views along with computer-aided detection (CAD). Synthesized 2D images are generated from the tomosynthesis. FINDINGS: The breasts are almost entirely fatty (ACR BI-RADS breast composition Category a). Background stromal and fibroglandular densities are similar to prior studies. There is no developing density or architectural abnormality. No interval dominant nodularity or abnormal calcifications. The axilla and skin contours are unremarkable. No significant changes. MM/MM tomosynthesis screening BI IMPRESSION: No mammographic evidence of malignancy. ASSESSMENT: BI-RADS 2: Benign RECOMMENDATION: Routine annual mammography screening. This patient's information was entered into a reminder system with a target due date for their next mammogram.
== END 2022-06-14 11:43 | disposition home or self-care (01) ==
LOC: HO.MAMMO 11:42
PROVIDERS: PCP Internal Medicine; Visit Provider Internal Medicine
DX: Z12.31 Encounter for screening mammogram for malignant neoplasm of breast (principal)
CPT/HCPCS: 77063; 77067

== ENCOUNTER 2022-08-03 08:02 | Outpatient (REF) | payer MEDICARE, SELFPAY ==
--- NOTE | ~2022-08-03 | MM_ITS ---
EXAMINATION: BONE DENSITOMETRY CLINICAL INDICATION: Osteoporosis. COMPARISON: Baseline BD dated 05/08/2020. TECHNIQUE: Using a Enject DXA System (software version: 13.1) manufactured by [employer], dual-energy x-ray absorptiometry was performed of the lumbar spine and left hip. The images are of good technical quality. Summary results are attached. FINDINGS: AP SPINE L1-L4: Current: BMD 0.725 g/cm2, Z-score -2.3, T-score -3.8, osteoporosis, 2.4% decrease from baseline (<5% change is not significant). Baseline: BMD 0.743 g/cm2. LEFT FEMUR, NECK: Current: BMD 0.691 g/cm2, Z-score -0.9, T-score -2.5, osteoporosis. Baseline: BMD 0.663 g/cm2. LEFT FEMUR, TOTAL: Current: BMD 0.729 g/cm2, Z-score -0.8, T-score -2.2, osteopenia, 1.7% increase from baseline (<5% change is not significant). Baseline: BMD 0.717 g/cm2. IDENTIFIED RISK FACTORS: Osteoporosis. Menopause. Hysterectomy. HISTORY OF FRACTURE: None listed. MEDICATIONS: Calcium supplement or multivitamin. Vitamin D. MM/XR DEXA axial skeleton IMPRESSION: 1. DIAGNOSIS: Osteoporosis based on the lowest T-score value of -3.8 in the lumbar spine applying World Health Organization criteria. 2. 10-YEAR FRACTURE RISK PREDICTION, FRAX: According to the guidelines, FRAX calculation should only be performed on patients in the osteopenia bone density category. Therefore, FRAX was not performed on this patient.? 3. Treatment Recommendations: NOF guidelines recommend consideration for treatment in postmenopausal women and men age 50 and older presenting with the following: -A hip or vertebral (clinical or morphometric) fracture. -T-score less than or equal to -2.5 at the femoral neck or spine after appropriate evaluation to exclude secondary causes. -Low bone mass at the hip or spine and a 10-year fracture probability by FRAX of greater than or equal to 3% for hip fracture or greater than or equal to 20% for major osteoporotic fracture based on the [place] adapted WHO algorithm. 4. Other Recommendations: All treatment decisions require clinical judgment and consideration of individual patient factors, including patient preferences, comorbidities, previous drug use, risk factors not captured in the FRAX model (e.g. frailty, falls, vitamin D deficiency, increased bone turnover, interval significant decline in bone density) and possible under or overestimation of fracture risk by FRAX. Additional medical evaluation for secondary cause of low bone mineral density may be appropriate. FUTURE SCAN RECOMMENDATION: People with diagnosed cases of osteoporosis or at high risk for fracture should have regular bone mineral density tests. For patients eligible for Medicare, routine testing is allowed once every 2 years. The testing frequency can be increased to one year for patients who have rapidly progressing disease, those who are receiving or discontinuing medical therapy to restore bone mass, or have additional risk factors.
== END 2022-08-03 08:03 | disposition home or self-care (01) ==
LOC: HO.MAMMO 08:02
PROVIDERS: PCP Internal Medicine; Visit Provider Internal Medicine
DX: Z13.820 Encounter for screening for osteoporosis (principal); Z78.0 Asymptomatic menopausal state
CPT/HCPCS: 77080

== ENCOUNTER 2023-06-16 08:23 | Outpatient (REF) | payer MEDICARE, OTHER, SELFPAY ==
--- NOTE | ~2023-06-16 | MM_ITS ---
EXAMINATION: MM SCREENING DIGITAL BREAST TOMOSYNTHESIS, BILATERAL CLINICAL INFORMATION: Screening. Asymptomatic. COMPARISON: Mammography: This study is compared with prior exams dating back to 2018. TECHNIQUE: Digital breast tomosynthesis is performed in both the craniocaudal and mediolateral oblique views along with computer-aided detection (CAD). Synthesized 2D images are generated from the tomosynthesis. FINDINGS: There are scattered areas of fibroglandular density (ACR BI-RADS breast composition Category b). There are no significant masses, abnormal calcifications, or other abnormalities. There are few, bilateral, coarse, benign calcifications present MM/MM tomosynthesis screening BI IMPRESSION: No mammographic evidence of malignancy. ASSESSMENT: BI-RADS BI-RADS 2 - Benign Findings RECOMMENDATION: Routine annual mammography screening. 1 year F/U This examination should not preclude the clinical evaluation of a suspicious palpable abnormality. This patient's information was entered into a reminder system with a target due date for their next mammogram.
== END 2023-06-16 08:24 | disposition home or self-care (01) ==
LOC: HO.MAMMO 08:23
PROVIDERS: PCP Internal Medicine; Visit Provider Internal Medicine
DX: Z12.31 Encounter for screening mammogram for malignant neoplasm of breast (principal)
CPT/HCPCS: 77063; 77067

== ENCOUNTER → 2023-06-16 08:45 | Outpatient (BNV) | payer MEDICARE, OTHER, SELFPAY | PROVIDERS: PCP Internal Medicine; Visit Provider Radiology Diagnostic Radiology | DX: Z12.31 Encounter for screening mammogram for malignant neoplasm of breast (principal) | CPT/HCPCS: 77063; 77067 ==

== ENCOUNTER 2024-06-06 06:15 | Outpatient (REF) | payer MEDICARE, OTHER, SELFPAY ==
[2024-06-06 06:34] LABS: MANUAL DIFF FLAG NO
[2024-06-06 07:17] LABS: Basophils Percent Auto 0.8 % (0-2); Eosinophils Absolute Auto 0.1 X10*3/uL (0.0-0.4); Eosinophils Percent Auto 1.6 % (0-4); Hematocrit 41.5 % (37.0-47.0); Imm Gran Abs Auto 0.01 X10*3/uL (0.00-0.03); Imm Gran Pct Auto 0.2 % (0.0-0.4); Lymphocytes Absolute Auto 1.3 X10*3/uL (1.2-4.9); Lymphocytes Percent Auto 24.6 % (20-40); Mean Corpuscular HGB Conc 33.7 g/dl (31.0-35.0); Mean Corpuscular Volume 94.7 fL (80.0-98.0); Mean Platelet Volume 10.9 fL (9.4-12.3); Monocytes Absolute Auto 0.5 X10*3/uL (0.1-1.2); Monocytes Percent Auto 9.3 % (2-11); Neutrophils Absolute Auto 3.2 x10*3/uL (2.0-8.3); Neutrophils Percent Auto 63.5 % (45-73); Platelet Count 286 X10*3/uL (160-400); Red Blood Count 4.38 X10*6/uL (4.20-5.50); Red Cell Distribution Width 12.9 % (11.0-16.0); White Blood Count 5.1 X10*3/uL (4.8-10.8)
[2024-06-06 07:50] LABS: Alanine Aminotransferase 20 U/L (0-31); Albumin Level 4.4 g/dL (3.5-5.0); Anion Gap 13 (12-20); Aspartate Amino Transferase 22 U/L (5-31); Bilirubin Total 0.4 mg/dL (0.0-1.0); Blood Urea Nitrogen 15 mg/dL (9-16); Calcium 10.2 mg/dL (8.4-10.2); Carbon Dioxide 25 mmol/L (22-29); Chloride 106 mmol/L (96-108); Cholesterol 240 mg/dL (<200); Estimated Glomerular Filt Rate > 60; Glucose Fasting 88 mg/dL (60-99); HDL Cholesterol 62 mg/dL (>40); LDL Cholesterol Calculated 159 mg/dL (<100); Potassium 3.7 mmol/L (3.3-5.1); Sodium 140 mmol/L (135-145); Total Protein 6.9 g/dL (6.5-8.0); Triglycerides 99 mg/dL (<150)
[2024-06-06 08:01] LABS: Alkaline Phosphatase 68 U/L (39-117); Vitamin D 25-OH Total 38.1 ng/mL (>30)
== END 2024-06-06 06:16 | disposition home or self-care (01) ==
LOC: HO.LAB 06:15
PROVIDERS: PCP Internal Medicine; Visit Provider Internal Medicine
DX: M81.0 Age-related osteoporosis without current pathological fracture (principal); K21.9 Gastro-esophageal reflux disease without esophagitis
CPT/HCPCS: 36415; 80053; 80061; 82306; 85025

== ENCOUNTER 2024-08-07 09:32 | Outpatient (REF) | payer MEDICARE, OTHER, SELFPAY ==
--- NOTE | ~2024-08-07 | MM_ITS ---
EXAMINATION: DXA BONE DENSITY AXIAL HISTORY: Estrogen deficiency TECHNIQUE: Novatris Dual energy absorptiometry (DEXA) of the lumbar spine, total left hip, and femoral neck was performed. COMPARISON: Comparison is made with the prior examination dated 08/03/2022. FINDINGS: The bone mineral density of the lumbar spine is 0.793 with a T-score of -3.2, and a Z-score of -1.7. This represents a BMD change of 9.4% compared to the prior exam. This is statistically significant. The bone mineral density of the left total hip is 0.721 with a T-score of -2.3, and a Z-score of -0.8. This represents a BMD change of -1.1% compared to the prior exam. This is not statistically significant. The bone mineral density of the left femoral neck is 0.648 with a T-score of -2.8, and a Z-score of -1.1. This represents a BMD change of -6.2% compared to the prior exam. FRACTURE RISK: The FRAX index suggests a ten year probability of major osteoporotic fracture of 18.4%, and of hip fracture 6.1%. MM/XR DEXA axial skeleton IMPRESSION: Based on bone mineral density, and according to World Health Organization (WHO) criteria, the diagnosis is consistent with osteoporosis. All bone density values are in grams per centimeter squared (g/cm2). Statistically, 68% of repeat scans fall within 1 SD (+/- 0.010 g/cm2 for AP spine L1-L4) and 1 SD (+/- 0.012 g/cm2 for femur total) FRAX is a trademark of the [employer]'s [place] [employer] Metabolic Bone Disease, a World Health Organization (WHO) Collaborating Center. Electronically signed by: Efrem Nino MD 08/07/2024 10:29 AM EDT
--- OUTSIDE RECORDS SUMMARY | 2024-08-07 10:46 | XMS_ITS | Patient Health Record ---
Author Organization [facility] Address [address] [place] [address] Care Team Providers Care Flour Inspector Name Role Phone Judah Smith MD Primary Care Provider Efrem Hurt [phone] Allergies Allergen (clinical drug ingredient) Drug/Non Drug Allergy documented on EMR Reaction Allergy Type Onset Date Status Sulfa Unknown Drug Allergy Active Penicillin Unknown Drug Allergy Active vancomycin Vancomycin HCl Unknown Drug Allergy A ctive acetaminophen / oxycodone Percocet Unknown Drug Allergy Active morphine Morphine Sulfate Unknown Drug Allergy Active Bactrim Unknown Drug Allergy Active Reason For Referral No Information Medications Medication SIG (Take, Route, Frequency, Duration) Notes Start Date End Date Status Advil prn Active Immunizations Vaccine Route Administration Date Status Comme nts Influenza Unknown 12/28/2020 Administered Problems Problem Type SNOMED Code ICD Code Onset Dates Problem Status W/U Status Risk Notes Problem 555363588 Encounter for screening for malignant neoplasm of colon (Z12.11) Active confirmed Problem 142893277 History of adenomatous polyp of colon (Z86.010) Active confirmed Problem Screening for malignant neoplasm of rectum (755324675) Encounter for screening for malignant neoplasm of rectum (Z12.12) Active confirmed Problem 99064647 Preprocedural examination (Z01.818) Active confirmed Problem History of polyp of colon (056445595) History of colon polyps (Z86.010) Active confirmed Problem 418984518 Encntr long-term NSAID use (Z79.1) Active confirmed Problem Diverticulosis of colon (362370026) Diverticulosis of colon (K57.30) Active confirmed Problem Abnormal feces (283840337) Positive colorectal cancer screening using Cologuard test (R19.5) Active confirmed Plan Of Treatment Future Test Test Name Order Date COLONOSCOPY 12/04/2015 COLONOSCOPY 09/22/2021 COLONOSCOPY 11/17/2021 Insurance Providers Payer Name Payer Address Payer Phone Subscriber Number Group Number Insured Name Patient Relationship to Insured Coverage Start Date Coverage End Date MEDICARE OF [place] [address] [place] [address] [id number] MARIO ALBERTO LOU Self - patient is the insured [facility] referral [id number] [place] [address] [id number] MARIO ALBERTO LOU Self - patient is the insured Medical (General) History Medical History History ICD Code Screening colonoscopy in 200 5 with removal of a tubular adenoma; followup colonoscopy 08-10-2010 with removal of a small tubular adenoma--also noted to have some sigmoid diverticulosis and internal hemorrhoids; negative colonoscopy in 02/2016 Denies LA,DM,CVA,Lung disease,renal dise ase Arthritis in knees Surgical History Surgery Date(Month/Year) Right hip replacement 2004 Hysterectomy, bladder suspension 2015 Cataracts bilateral
== END 2024-08-07 09:33 | disposition home or self-care (01) ==
LOC: HO.MAMMO 09:32
PROVIDERS: PCP Internal Medicine; Visit Provider Internal Medicine
DX: Z12.31 Encounter for screening mammogram for malignant neoplasm of breast (principal); Z13.820 Encounter for screening for osteoporosis; Z78.0 Asymptomatic menopausal state
CPT/HCPCS: 77063; 77067; 77080

== ENCOUNTER → 2024-08-07 10:00 | Outpatient (BNV) | payer MEDICARE, OTHER, SELFPAY | PROVIDERS: PCP Internal Medicine; Visit Provider Radiology Diagnostic Radiology | DX: E28.39 Other primary ovarian failure (principal) | CPT/HCPCS: 77063; 77067; 77080 ==

== ENCOUNTER 2024-08-17 09:05 | Outpatient (AMB) | payer MEDICARE, OTHER, SELFPAY ==
--- NOTE | 2024-08-17 09:06 | MHC.PC.OV ---
Vital Signs 08/17/24 09:09 Height 5 ft 4 in Weight 136 lb BMI 23.3 BP 124/80 Pulse 96 Pulse Source Pulse Oximeter Temp 97.7 F Temp Source Temporal Artery Scan Pulse Oximetry (%) 99 Oxygen Delivery Method Room Air Intake Visit Reasons: To discuss Bone density [employer] Former Supervisor Required: No Accompanied by: Self / Same As Patient Allergies codeine Allergy (Verified 08/17/24 09:12) Itching morphine Allergy (Verified 08/17/24 09:12) Itching oxycodone [From Percocet] Allergy (Verified 08/17/24 09:12) Itching Penicillins Allergy (Verified 08/17/24 09:12) Itching Sulfa (Sulfonamide Antibiotics) Allergy (Verified 08/17/24 09:12) Itching vancomycin Allergy (Verified 08/17/24 09:12) Itching Fwycltk-GRJ-GrD Reductase Inhibitor [Qmpjjut-Tya-Kik Reductase Inhibitor] Adverse Reaction (Verified 08/17/24 09:12) Gastrointestinal Upset Tobacco use date assessed: 08/17/24 Fall risk assessment: No Falls in past year Last assessed Fall Risk: 08/17/24 Dental Screening Dental Screen Date: 08/17/24 Did you have a dental visit in the last 12 months?: Yes Did you have a dental problem in the last 6 months where you did not have access to dental care?: No HPI HPI Comments History of Present Illness Details 73 year old female with past medical history of osteoporosis, hyperlipidemia, GERD presenting for follow up DXA DXA reviewed with patient compared to 2022. Improved lumbar spine worsened left hip femur. Taking Ca & vitamin D unsure of amounts. Last labs normal Ca and vitamin D. Declines bisphosphanate therapy. No history of non traumatic fracture. History of right hip replacement following injury Colon cancer screening UTD-2021 Mammo 07/2024-normal ROS CONSTITUTIONAL: Denies weight loss, fever and chills. HEENT: Denies changes in vision and hearing. RESPIRATORY: Denies SOB and cough. CV: Denies palpitations and CP GI: Denies abdominal pain, nausea, vomiting and diarrhea. : Denies dysuria and urinary frequency. MSK: Denies new myalgia and joint pain. SKIN: Denies rash and pruritus. NEUROLOGICAL: Denies headache PSYCHIATRIC: Denies recent changes in mood. PHYSICAL EXAM: GENERAL: Alert and oriented x 3. NAD EYES: EOMI. Anicteric. HENT: Moist mucous membranes. No scleral icterus. No cervical lymphadenopathy. LUNGS: Clear to auscultation bilaterally. CARDIOVASCULAR: Regular rate and rhythm. No murmur. No JVD. ABDOMEN: Soft, non-tender +bs EXTREMITIES: No edema. Non-tender. SKIN: No rashes or lesions. Warm. NEUROLOGIC: No focal neurological deficits. CN II-XII grossly intact PSYCHIATRIC: Cooperative. Appropriate mood and affect [facility] Medical History Arthritis COVID-19 vaccine series completed History of heartburn High cholesterol Surgical History History of cataract extraction History of hysterectomy History of breast lump/mass excision History of total right hip replacement Hx of colonoscopy Family History Father No problems noted. Mother H/O: hysterectomy Social History Housing: House Are you a primary resident care associate to a significant other at home: No Do you presently have visiting nurse or other home services: No Alcohol intake: current Alcohol intake frequency: holidays/special occasions only Patient Tobacco Use Status: Former Tobacco user Tobacco use type: Cigarette service: No Current occupational status: retired Cognitive needs: No Hearing needs: No Vision needs: Yes (reading glasses) Questionnaire PHQ-9 Over the last 2 weeks, how often have you been bothered by any of the following problems? 1. Little interest or pleasure in doing things: not at all 2. Feeling down, depressed, or hopeless: not at all 3. Trouble falling or staying asleep, or sleeping too much: not at all 4. Feeling tired or having little energy: not at all 5. Poor appetite or overeating: not at all 6. Feeling bad about yourself - or that you are a failure or have let yourself or your family down: not at all 7. Trouble concentrating on things, such as reading the newspaper or watching television: not at all 8. Moving or speaking so slowly that other people could have noticed. Or the opposite - being so fidgety or restless that you have been moving around a lot more than usual: not at all 9. Thoughts that you would be better off or of hurting yourself in some way: not at all Total score: 0 Source: Developed by Drs. Efrem Lawler, Paulette Hernandez, Milton Tavarez and colleagues, with an educational kahlil from [employer]. Thrive Questionnaire Date Thrive assessed: 08/17/24 I am a: Patient What is your living situation today?: I have a steady place to live Within the past 12 months, did the food you bought not last and you didn't have the money to get more?: Never true Within the past 12 months, did you worry whether your food would run out before you got money to buy more?: Never true Do you have trouble paying for medicines?: No Do you have trouble getting transportation to medical appointments?: No Do you have trouble paying your heating and electricity bill?: No Do you have trouble taking care of your child, family member or friend?: No Do you have trouble with day-to-day activities such as bathing, preparing meals, shopping, managing finances, etc.?: No Are you currently unemployed and looking for a job?: No Are you interested in more education?: No Please select the resources that you would like help with: None THRIVE Score: 0 AUDIT C Alcohol Use Questionnaire (AUDIT-C) 1. How often do you have a drink containing alcohol?: Monthly or less 2. How many drinks containing alcohol do you have on a typical day when you are drinking?: 1 or 2 3. How often do you have six or more drinks on one occasion?: Never Total Score: 1 FERNANDO-7 AMB Questionnaire FERNANDO-7 Date FERNANDO - 7 assessed: 08/17/24 Feeling nervous, anxious, or on edge: 0 = Not at all Not being able to stop or control worryin = Not at all Worrying too much about different things: 0 = Not at all Trouble relaxin = Not at all Being so restless that it is hard to sit still: 0 = Not at all Becoming easily annoyed or irritable: 0 = Not at all Feeling afraid as if something awful might happen: 0 = Not at all Total FERNANDO-7 score (0-4 normal; 5-9 mild; 10-14 moderate; 15-21 severe): 0 Source: Developed by Drs. Efrem Lawler, Paulette Hernandez, Milton Tavarez and colleagues, with an educational kahlil from [employer]. Physical exam (Primary Care) Vital Signs: Last Vital Signs Temp 97.7 F 08/17/24 09:09 Pulse 96 08/17/24 09:09 BP 124/80 08/17/24 09:09 Pulse Ox 99 08/17/24 09:09 Oxygen Delivery Method Room Air 08/17/24 09:09 BMI result Body Mass Index 23.3 Tobacco/Smoking Status: Tobacco use Status Tobacco use date assessed 08/17/24 08/17/24 09:18 Patient Tobacco Use Status Former Tobacco user 08/17/24 09:18 Tobacco use type Cigarette 08/17/24 09:18 PHQ-9: PHQ-9 Score PHQ-9: Total score 0 08/17/24 09:18 Thrive Assessment: Date of Thrive Assessment Date Thrive assessed 08/17/24 08/17/24 09:18 Coding Level of Care Code New Pt Level 4 (90042) Complex EM visit Add On G2211 Diagnoses Osteoporosis, unspecified osteoporosis type, unspecified pathological fracture presence M81.0 Osteoporosis type: unspecified Presence of current pathological fracture: unspecified High cholesterol E78.00 History of heartburn Z87.898 Assessment & Plan Assessment & Plan (1) Osteoporosis: Code(s): M81.0 - Age-related osteoporosis without current pathological fracture Category: Medical Qualifiers: Osteoporosis type: unspecified Presence of current pathological fracture: unspecified Qualified Code(s): M81.0 - Age-related osteoporosis without current pathological fracture (2) High cholesterol: Comment: no meds now Code(s): E78.00 - Pure hypercholesterolemia, unspecified Category: Medical (3) History of heartburn: Code(s): Z87.898 - Personal history of other specified conditions Category: Medical Plan 73 to establish care past medical, surgical, social and family history reviewed Discussed osteoporosis-declines bisphosphanate therapy and referral to endocrine Continue weight bearing exercise, vit D and calcium Orders: Orders Complete Blood Count Auto Diff 6 Months E78.00 - Pure hypercholesterolemia, unspecified, M81.0 - Age-related osteoporosis without current pathological fracture, Z13.0 - Encounter for screening for diseases of the blood and blood-forming organs and certain disorders involving the immune mechanism, Z87.898 - Personal history of other specified conditions Comprehensive Met. Panel 6 Months E78.00 - Pure hypercholesterolemia, unspecified, M81.0 - Age-related osteoporosis without current pathological fracture, Z13.0 - Encounter for screening for diseases of the blood and blood-forming organs and certain disorders involving the immune mechanism, Z87.898 - Personal history of other specified conditions Lipid Panel 6 Months E78.00 - Pure hypercholesterolemia, unspecified, M81.0 - Age-related osteoporosis without current pathological fracture, Z13.0 - Encounter for screening for diseases of the blood and blood-forming organs and certain disorders involving the immune mechanism, Z87.898 - Personal history of other specified conditions Vitamin D 25-OH (D2 and D3) 6 Months E78.00 - Pure hypercholesterolemia, unspecified, M81.0 - Age-related osteoporosis without current pathological fracture, Z13.0 - Encounter for screening for diseases of the blood and blood-forming organs and certain disorders involving the immune mechanism, Z87.898 - Personal history of other specified conditions TSH reflex Free T4 6 Months E78.00 - Pure hypercholesterolemia, unspecified, M81.0 - Age-related osteoporosis without current pathological fracture, Z13.0 - Encounter for screening for diseases of the blood and blood-forming organs and certain disorders involving the immune mechanism, Z87.898 - Personal history of other specified conditions
[2024-08-17 09:09] VITALS: BP 124/80; PULSE 96; TEMP 36.5; O2SAT 99; BMI 23.3
--- OUTSIDE RECORDS SUMMARY | 2024-08-17 09:45 | XMS_ITS | Patient Health Record ---
Author Organization [facility] Address [address] [place] [address] Care Team Providers Care Conflict Resolution Professional Name Role Phone Judah Smith MD Primary Care Provider Efrem Hurt [phone] Allergies Allergen (clinical drug ingredient) Drug/Non Drug Allergy documented on EMR Reaction Allergy Type Onset Date Status vancomycin Vancomycin HCl Unknown Drug Allergy A ctive acetaminophen / oxycodone Percocet Unknown Drug Allergy Active morphine Morphine Sulfate Unknown Drug Allergy Active sulfamethoxazole / trimethoprim Bactrim Unknown Drug Allergy Active Sulfa Unknown Drug Allergy Active Penicillin Unknown Drug Allergy Active Reason For Referral No Information Medications Medication SIG (Take, Route, Frequency, Duration) Notes Start Date End Date Status Advil prn Active Immunizations Vaccine Route Administration Date Status Comme nts Influenza Unknown 12/28/2020 Administered Problems Problem Type SNOMED Code ICD Code Onset Dates Problem Status W/U Status Risk Notes Problem 984617275 Encounter for screening for malignant neoplasm of colon (Z12.11) Active confirmed Problem 579449107 History of adenomatous polyp of colon (Z86.010) Active confirmed Problem Screening for malignant neoplasm of rectum (042755327) Encounter for screening for malignant neoplasm of rectum (Z12.12) Active confirmed Problem 36036558 Preprocedural examination (Z01.818) Active confirmed Problem History of polyp of colon (131365249) History of colon polyps (Z86.010) Active confirmed Problem 349937307 Encntr long-term NSAID use (Z79.1) Active confirmed Problem Diverticulosis of colon (529713920) Diverticulosis of colon (K57.30) Active confirmed Problem Abnormal feces (218770962) Positive colorectal cancer screening using Cologuard test (R19.5) Active confirmed Plan Of Treatment Future Test Test Name Order Date COLONOSCOPY 12/04/2015 COLONOSCOPY 09/22/2021 COLONOSCOPY 11/17/2021 Insurance Providers Payer Name Payer Address Payer Phone Subscriber Number Group Number Insured Name Patient Relationship to Insured Coverage Start Date Coverage End Date MEDICARE OF [place] [address] [place] [address] [id number] MARIO ALBERTO LOU Self - patient is the insured [facility] referral [id number] [place] [address] [id number] MARIO ALBERTO LOU Self - patient is the insured Medical (General) History Medical History History ICD Code Screening colonoscopy in 200 5 with removal of a tubular adenoma; followup colonoscopy 08-10-2010 with removal of a small tubular adenoma--also noted to have some sigmoid diverticulosis and internal hemorrhoids; negative colonoscopy in 02/2016 Denies [place],DM,CVA,Lung disease,renal dise ase Arthritis in knees Surgical History Surgery Date(Month/Year) Right hip replacement 2004 Hysterectomy, bladder suspension 2015 Cataracts bilateral
== END 2024-08-17 09:40 | disposition home or self-care (01) ==
LOC: HO.HMCHD 09:05
PROVIDERS: PCP Internal Medicine; Visit Provider Internal Medicine
DX: M81.0 Age-related osteoporosis without current pathological fracture (principal); E78.00 Pure hypercholesterolemia, unspecified; Z87.898 Personal history of other specified conditions

== ENCOUNTER → 2024-08-17 09:05 | Outpatient (BNVA) | payer MEDICARE, OTHER, SELFPAY | PROVIDERS: PCP Internal Medicine; Visit Provider Internal Medicine | DX: M81.0 Age-related osteoporosis without current pathological fracture (principal); E78.00 Pure hypercholesterolemia, unspecified; Z87.898 Personal history of other specified conditions | CPT/HCPCS: 96127; 99202 ==

== ENCOUNTER 2024-11-10 09:33 | Outpatient (AMB) | payer MEDICARE, OTHER, SELFPAY ==
[2024-11-10 10:23] VITALS: BP 124/76; PULSE 83; TEMP 36.7; O2SAT 98
--- NOTE | 2024-11-10 10:23 | MHC.OFFWIV ---
Intake Vital Signs 11/10/24 10:23 Height 5 ft 4 in BP 124/76 Blood Pressure Location Lt brachial Position Sitting Pulse 83 Pulse Source Pulse Oximeter Temp 98.0 F Temp Source Oral Pulse Oximetry (%) 98 Oxygen Delivery Method Room Air Intake Visit Reasons: EP Bug bite not healing Patient Tobacco Use Status: Former Tobacco user Allergies codeine Allergy (Verified 11/10/24 10:57) Itching morphine Allergy (Verified 11/10/24 10:57) Itching oxycodone [From Percocet] Allergy (Verified 11/10/24 10:57) Itching Penicillins Allergy (Verified 11/10/24 10:57) Itching Sulfa (Sulfonamide Antibiotics) Allergy (Verified 11/10/24 10:57) Itching vancomycin Allergy (Verified 11/10/24 10:57) Itching Jnhfmus-UGH-RaF Reductase Inhibitor [Spdlmwr-Wox-Lbf Reductase Inhibitor] Adverse Reaction (Verified 11/10/24 10:57) Gastrointestinal Upset Medication List - Last Reconciled 11/10/24 by MANDO Gomes- atorvastatin 10 mg PO DAILY ibuprofen (Advil) 400 mg PO Q8H PRN lorazepam mg PO Do you need a note to return to daycare/school/sports/work: No HPI HPI Comments History of Present Illness Details History of Present Illness - The patient is a 73-year-old female presenting with suspected insect bite reaction, on R lateral trunk. - Lesion onset Tuesday or Tuesday; suspect insect or tick bite. - Target-like initial appearance; self-treated with Neosporin and alcohol. - Adhesive reaction causing irritation noted. - Reports itchy lesion, no fever or systemic symptoms. - Denies pain. Review of Systems - Skin: Reports itchy skin lesion; denies pain or systemic symptoms (fever, chills). - General: Reports feeling nervous; denies systemic illness symptoms. Physical Exam R lateral trunk: The area is not tender, warm, there is no drainage. Discussion Notes During the visit, I discussed with the patient that the suspected insect bite could possibly be from a tick, given the initial target-like appearance she described. To address this and to provide a broader spectrum of infection coverage, including tick-borne illnesses, I prescribed doxycycline. I explained that doxycycline offers effective penetration in skin reactions and is also beneficial for tick-related concerns. The patient was advised to take the medication twice daily for seven days. We discussed the role of leaving the lesion exposed to air and provided instructions on using hydrocortisone around the irritated edges caused by adhesive. I confirmed that it is safe to get a tetanus shot today since it does not appear to have been administered in the last ten years, and the patient consented to this additional precaution. Additionally, I reassured the patient that electronic transmission to [facility] in [place] would allow her to receive the medication promptly. We discussed my recommendations to refrain from wearing items that might irritate the area further. I advised the patient to monitor the lesion and seek a reevaluation if there is no improvement or worsening over the next days. Assessment and Plan 1. Suspected Insect Bite - Doxycycline 100 mg BID for 7 days. - Leave lesion uncovered, apply hydrocortisone BID. 2. Tetanus prophylaxis - Administer booster as booster not recorded. Patient Instructions - Take doxycycline twice daily for 7 days. - Leave the skin lesion open to air. - Use hydrocortisone cream on irritated skin around the lesion two times daily. - Monitor for any worsening symptoms. - Avoid putting items that may rub or irritate against the lesion. - Confirm receipt of doxycycline at [facility]. - Tdap given today - RTO if no improvement Consent Patient was informed and verbally consented to the use of an ambient scribe for clinic note documentation during this visit. [facility] Medical History Arthritis COVID-19 vaccine series completed History of heartburn High cholesterol Surgical History History of cataract extraction History of hysterectomy History of breast lump/mass excision History of total right hip replacement Hx of colonoscopy Family History Father No problems noted. Mother H/O: hysterectomy Social History Housing: House Are you a primary family day care worker to a significant other at home: No Do you presently have visiting nurse or other home services: No Alcohol intake: current Alcohol intake frequency: holidays/special occasions only Patient Tobacco Use Status: Former Tobacco user Tobacco use type: Cigarette service: No Current occupational status: retired Cognitive needs: No Hearing needs: No Vision needs: Yes (reading glasses) Physical Exam Vital Signs: Last Vital Signs Temp 98.0 F 11/10/24 10:23 Pulse 83 11/10/24 10:23 BP 124/76 11/10/24 10:23 Pulse Ox 98 11/10/24 10:23 Oxygen Delivery Method Room Air 11/10/24 10:23 Immunizations Boostrix Tdap 2.5 Lf unit-8 mcg-5 Lf/0.5 mL intramuscular syringe Performing Provider: KAILEY Gomes Performing Location: [facility] [place] [facility] Administered by: Yossi Aguilar CMA on 11/10/24 11:30 Dose Route Admin Location Dispensed Lot Number Expiration Date ND Scalping Machine Operator 0.5 mL IM Right Deltoid 0.5 mL [id number] 01/23/27 25781-428-27 [employer] VIS Given Date VIS Provided VIS Publication Date 11/10/24 Single Vaccine 21 Eligibility Eligibility Date Funding Source Not [facility] Eligible 11/10/24 Private Assessment & Plan Assessment & Plan (1) Cellulitis: Code(s): L03.90 - Cellulitis, unspecified Qualifiers: Site of cellulitis: trunk Site of cellulitis of trunk: unspecified site Qualified Code(s): L03.319 - Cellulitis of trunk, unspecified (2) Need for Tdap vaccination: Code(s): Z23 - Encounter for immunization Plan . Orders: Orders TDaP Immunization Today Z23 - Encounter for immunization Medications: New doxycycline hyclate 100 mg PO BID 14 caps 0RF 7 days Boostrix Tdap (diphth,pertus(acell),tetanus) 0.5 mL IM ONCE 0.5 mL 0RF NS Z23 - Encounter for immunization Patient Instructions: Patient Instructions - Take doxycycline twice daily for 7 days. - Leave the skin lesion open to air. - Use hydrocortisone cream on irritated skin around the lesion two times daily. - Monitor for any worsening symptoms. - Avoid putting items that may rub or irritate against the lesion. - Confirm receipt of doxycycline at [facility]. - Return if worsening - Tdap given today Coding Level of Care Code Est Pt Level 4 (95293) Diagnoses Cellulitis of trunk, unspecified site of trunk L03.319 Site of cellulitis: trunk Site of cellulitis of trunk: unspecified site Need for Tdap vaccination Z23
== END 2024-11-10 11:44 | disposition home or self-care (01) ==
LOC: HO.HMCWIC 09:33
PROVIDERS: PCP Internal Medicine; Visit Provider Nurse Practitioner Family
DX: L03.319 Cellulitis of trunk, unspecified (principal); Z23 Encounter for immunization

== ENCOUNTER → 2024-11-10 09:33 | Outpatient (BNVA) | payer MEDICARE, OTHER, SELFPAY | PROVIDERS: PCP Internal Medicine; Visit Provider Nurse Practitioner Family | DX: Z23 Encounter for immunization (principal); L03.319 Cellulitis of trunk, unspecified | CPT/HCPCS: 90471; 90715; 99212 ==

== ENCOUNTER 2025-03-06 06:05 | Outpatient (REF) | payer MEDICARE, OTHER, SELFPAY ==
--- OUTSIDE RECORDS SUMMARY | 2025-03-06 06:08 | XMS_ITS | Patient Health Record ---
Author Organization [facility] Address [address] [place] [address] Care Team Providers Care Mathematician Research Name Role Phone Luis (RETIRED) Judah RAGLAND Primary Care Provide r Efrem Maldonado Unavailable [phone] Allergies Allergen (clinical drug ingredient) Drug/Non Drug Allergy documented on EMR Reaction Allergy Type Onset Date Status Penicillin Unknown Drug Allergy Active vancomycin Vancomycin HCl Unknown Drug Allergy A ctive acetaminophen / oxycodone Percocet Unknown Drug Allergy Active Morphine Sulfate Unknown Drug Allergy Active sulfamethoxazole / trimethoprim Bactrim Unknown Drug Allergy Active Sulfa Unknown Drug Allergy Active Reason For Referral No Information Medications Medication SIG (Take, Route, Frequency, Duration) Notes Start Date End Date Status Advil prn Active Immunizations Vaccine Route Administration Date Status Comme nts Influenza Unknown 12/28/2020 Administered Problems Problem Type SNOMED Code ICD Code Onset Dates Problem Status W/U Status Risk Notes Problem 543703301 Encounter for screening for malignant neoplasm of colon (Z12.11) Active confirmed Problem 193275000 History of adenomatous polyp of colon (Z86.010) Active confirmed Problem Screening for malignant neoplasm of rectum (807641715) Encounter for screening for malignant neoplasm of rectum (Z12.12) Active confirmed Problem 83405180 Preprocedural examination (Z01.818) Active confirmed Problem History of polyp of colon (situation) (478663720) History of colon polyps (Z86.010) Active confirmed Problem 944096047 Encntr long-term NSAID use (Z79.1) Active confirmed Problem Diverticulosis of colon (018850509) Diverticulosis of colon (K57.30) Active confirmed Problem Abnormal feces (712206098) Positive colorectal cancer screening using Cologuard test (R19.5) Active confirmed Plan Of Treatment Future Test Test Name Order Date COLONOSCOPY 12/04/2015 COLONOSCOPY 09/22/2021 COLONOSCOPY 11/17/2021 Insurance Providers Payer Name Payer Address Payer Phone Subscriber Number Group Number Insured Name Patient Relationship to Insured Coverage Start Date Coverage End Date MEDICARE OF [place] [address] [place] [address] [id number] MARIO ALBERTO LOU Self - patient is the insured [facility] referral [id number] [place] [address] [id number] MARIO ALBERTO LOU Self - patient is the insured Medical (General) History Medical History History ICD Code Screening colonoscopy in 200 5 with removal of a tubular adenoma; followup colonoscopy 08-10-2010 with removal of a small tubular adenoma--also noted to have some sigmoid diverticulosis and internal hemorrhoids; negative colonoscopy in 02/2016 Denies [place],DM,CVA,Lung disease,renal dise ase Arthritis in knees Surgical History Surgery Date(Month/Year) Right hip replacement 2004 Hysterectomy, bladder suspension 2015 Cataracts bilateral
[2025-03-06 06:17] LABS: MANUAL DIFF FLAG NO
[2025-03-06 07:45] LABS: Hematocrit 41.0 % (37.0-47.0); Hemoglobin 13.3 g/dl (12.0-16.0); Imm Gran Abs Auto 0.01 X10*3/uL (0.00-0.03); Imm Gran Pct Auto 0.3 % (0.0-0.4); Lymphocytes Absolute Auto 1.2 X10*3/uL (1.2-4.9); Mean Corpuscular HGB Conc 32.4 g/dl (31.0-35.0); Mean Corpuscular Hemoglobin 31.0 pg (27.0-33.0); Mean Corpuscular Volume 95.6 fL (80.0-98.0); NRBC Abs Auto 0.000 X10*3/uL (0.0-0.012); NRBC Pct Auto 0.0 /100WBC (0.0-0.2); Platelet Count 232 X10*3/uL (160-400); Red Blood Count 4.29 X10*6/uL (4.20-5.50); White Blood Count 3.4 X10*3/uL (4.8-10.8)
[2025-03-06 08:34] LABS: Alanine Aminotransferase 13 U/L (0-31); Albumin Level 4.2 g/dL (3.5-5.0); Alkaline Phosphatase 56 U/L (39-117); Anion Gap 10 (12-20); Aspartate Amino Transferase 23 U/L (5-31); Blood Urea Nitrogen 24 mg/dL (9-16); Calcium 9.5 mg/dL (8.4-10.2); Carbon Dioxide 26 mmol/L (22-29); Chloride 107 mmol/L (96-108); Cholesterol 213 mg/dL (<200); Estimated Glomerular Filt Rate > 60; HDL Cholesterol 55 mg/dL (>40); Potassium 3.6 mmol/L (3.3-5.1); Sodium 139 mmol/L (135-145); Total Protein 6.4 g/dL (6.5-8.0); Triglycerides 116 mg/dL (<150)
[2025-03-11 00:19] LABS: Vitamin D 25-OH, D2 <4 ng/mL; Vitamin D 25-OH, D3 38 ng/mL; Vitamin D 25-OH, Total 38 ng/mL (30-100)
== END 2025-03-06 06:06 | disposition home or self-care (01) ==
LOC: HO.LAB 06:05
PROVIDERS: PCP Internal Medicine; Visit Provider Internal Medicine
DX: M81.0 Age-related osteoporosis without current pathological fracture (principal); E78.00 Pure hypercholesterolemia, unspecified; Z87.898 Personal history of other specified conditions; Z13.0 Encounter for screening for diseases of the blood and blood-forming organs and certain disorders involving the immune mechanism
CPT/HCPCS: 36415; 80053; 80061; 82306; 84443; 85025

== ENCOUNTER 2025-03-15 13:40 | Outpatient (AMB) | payer MEDICARE, OTHER, SELFPAY ==
--- NOTE | 2025-03-15 13:42 | A.OFFPC_ITS ---
Vital Signs 03/15/25 13:48 Height 5 ft 4 in Weight 123 lb 6 oz BMI 21.2 BP 124/78 Blood Pressure Location Rt brachial Position Sitting Respiration 16 Pulse 77 Pulse Source Pulse Oximeter Temp 97.9 F Temp Source Oral Pulse Oximetry (%) 99 Oxygen Delivery Method Room Air Intake Visit Reasons: lab review/Cholesterol Intake Note: lab review and cholestrol Senior National Account Manager Required: No Allergies codeine Allergy (Verified 03/15/25 13:45) Itching morphine Allergy (Verified 03/15/25 13:45) Itching oxycodone (From Percocet) Allergy (Verified 03/15/25 13:45) Itching Penicillins Allergy (Verified 03/15/25 13:45) Itching Sulfa (Sulfonamide Antibiotics) Allergy (Verified 03/15/25 13:45) Itching vancomycin Allergy (Verified 03/15/25 13:45) Itching Cfvxkqm-WLH-AfL Reductase Inhibitor (Oeascpt-Phe-Bpm Reductase Inhibitor) Adverse Reaction (Verified 03/15/25 13:45) Gastrointestinal Upset Tobacco use date assessed: 08/17/24 Dental Screening Dental Screen Date: 08/17/24 Did you have a dental visit in the last 12 months?: Yes Did you have a dental problem in the last 6 months where you did not have access to dental care?: No Was dental information given to patient?: Patient has dentist HPI HPI Comments History of Present Illness Details 74 year old female with past medical his tory of osteoporosis, hyperlipidemia, GERD, ativan presenting for follow up Osteoporosis-declines meds. DXA 2024 reviewed with patient compared to 2022. Improved lumbar spine worsened left hip femur. Taking Ca & vitamin D unsure of amounts. Last labs normal Ca and vitamin D. No history of non traumatic fracture. History of right hip replacement following injury HLD stopped statin due to significant muscle pain. She has brought her LDL significantly with improved diet and increased physical activity Sees dermatology-ANGELIKA Anxiety-stable prn ativa Colon cancer screening UTD-2021 Mammo 07/2024-normal Received glu and covid vaccine recently ROS CONSTITUTIONAL: Denies weight loss, fever and chills. HEENT: Denies changes in vision and hearing. RESPIRATORY: Denies SOB and cough. CV: Denies palpitations and CP GI: Denies abdominal pain, nausea, vomiting and diarrhea. : Denies dysuria and urinary frequency. MSK: Denies new myalgia and joint pain. SKIN: Denies rash and pruritus. NEUROLOGICAL: Denies headache PSYCHIATRIC: Denies recent changes in mood. PHYSICAL EXAM: GENERAL: Alert and oriented x 3. NAD EYES: EOMI. Anicteric. HENT: Moist mucous membranes. No scleral icterus. No cervical lymphadenopathy. LUNGS: Clear to auscultation bilaterally. CARDIOVASCULAR: Regular rate and rhythm. No murmur. No JVD. ABDOMEN: Soft, non-tender +bs EXTREMITIES: No edema. Non-tender. SKIN: No rashes or lesions. Warm. NEUROLOGIC: No focal neurological deficits. CN II-XII grossly intact PSYCHIATRIC: Cooperative. Appropriate mood and affect [facility] Medical History Arthritis COVID-19 vaccine series completed History of heartburn High cholesterol Surgical History History of cataract extraction History of hysterectomy History of breast lump/mass excision History of total right hip replacement Hx of colonoscopy Family History Father No problems noted. Mother H/O: hysterectomy Social History (Updated 03/15/25 @ 13:47 by Ashok Dominguez MA) Housing: House Are you a primary hemodialysis patient care specialist to a significant other at home: No Do you presently have visiting nurse or other home services: No Alcohol intake: current Alcohol intake frequency: holidays/special occasions only Patient Tobacco Use Status: Former Tobacco user Tobacco use type: Cigarette Years Smoked: 15 e-Cigarette/Vaping Use: Never Used Second Hand Smoke Exposure: No service: No Current occupational status: retired Cognitive needs: No Hearing needs: No Vision needs: Yes (reading glasses) Questionnaire Thrive Questionnaire Date Thrive assessed: 03/08/25 I am a: Patient What is your living situation today?: I have a steady place to live Within the past 12 months, did the food you bought not last and you didn't have the money to get more?: Never true Do you have trouble paying for medicines?: No Do you have trouble getting transportation to medical appointments?: No Do you have trouble taking care of your child, family member or friend?: No Do you have trouble with day-to-day activities such as bathing, preparing meals, shopping, managing finances, etc.?: No Are you interested in more education?: No THRIVE Score: 0 AUDIT C Alcohol Use Questionnaire (AUDIT-C) 1. How often do you have a drink containing alcohol?: Monthly or less 2. How many drinks containing alcohol do you have on a typical day when you are drinking?: 1 or 2 3. How often do you have six or more drinks on one occasion?: Never Total Score: 1 FERNANDO-7 AMB Questionnaire FERNANDO-7 Date FERNANDO - 7 assessed: 08/17/24 Feeling nervous, anxious, or on edge: 0 = Not at all Not being able to stop or control worryin = Not at all Worrying too much about different things: 0 = Not at all Being so restless that it is hard to sit still: 0 = Not at all Becoming easily annoyed or irritable: 0 = Not at all Feeling afraid as if something awful might happen: 0 = Not at all Source: Developed by Drs. Efrem Lawler, Paulette Hernandez, Milton Tavarez and colleagues, with an educational kahlil from [employer]. FERNANDO-7 Assessment Billing FERNANDO-7 Assessment Tool: FERNANDO-7 Assessment 18797 Physical exam (Primary Care) Vital Signs: Last Vital Signs Temp 97.9 F 03/15/25 13:48 Pulse 77 03/15/25 13:48 Resp 16 03/15/25 13:48 BP 124/78 03/15/25 13:48 Pulse Ox 99 03/15/25 13:48 Oxygen Delivery Method Room Air 03/15/25 13:48 BMI result Body Mass Index 21.2 Tobacco/Smoking Status: Tobacco use Status Tobacco use date assessed 08/17/24 03/15/25 13:42 Patient Tobacco Use Status Former Tobacco user 03/15/25 13:47 Tobacco use type Cigarette 03/15/25 13:47 e-Cigarette/Vaping Use Never Used 03/15/25 13:51 Thrive Assessment: Date of Thrive Assessment Date Thrive assessed 03/08/25 03/15/25 13:42 Coding Level of Care Code Est Pt Level 4 (51316) Complex EM visit Add On G2211 Diagnoses High cholesterol E78.00 Osteoporosis, unspecified osteoporosis type, unspecified pathological fracture presence M81.0 Osteoporosis type: unspecified Presence of current pathological fracture: unspecified Anxiety F41.9 Additional Codes FERNANDO-7 Assessment Billing - FERNANDO-7 Assessment Tool: FERNANDO-7 Assessment 95940 ([id number]) Assessment & Plan Assessment & Plan (1) High cholesterol: Comment: no meds now Code(s): E78.00 - Pure hypercholesterolemia, unspecified Category: Medical (2) Osteoporosis: Code(s): M81.0 - Age-related osteoporosis without current pathological fracture Category: Medical Qualifiers: Osteoporosis type: unspecified Presence of current pathological fracture: unspecified Qualified Code(s): M81.0 - Age-related osteoporosis without current pathological fracture (3) Anxiety: Code(s): F41.9 - Anxiety disorder, unspecified Category: Medical Plan 74 year old for follow up HLD stopped meds. Cholesterol has improved significantly Anxiety stable prn lorazepam Osteoporosis. Declines referral. continue vitamin D calcium Mammo ordered. Orders: Orders Comprehensive Met. Panel 6 Months E78.00 - Pure hypercholesterolemia, unspecified, M81.0 - Age-related osteoporosis without current pathological fracture, Z13.0 - Encounter for screening for diseases of the blood and blood- forming organs and certain disorders involving the immune mechanism, Z87.898 - Personal history of other specified conditions MM tomosynthesis screening BI 5 Months Z12.31 - Encounter for screening mammogram for malignant neoplasm of breast Complete Blood Count Auto Diff 6 Months E78.00 - Pure hypercholesterolemia, unspecified, M81.0 - Age-related osteoporosis without current pathological fracture, Z13.0 - Encounter for screening for diseases of the blood and blood- forming organs and certain disorders involving the immune mechanism, Z87.898 - Personal history of other specified conditions Lipid Panel 6 Months E78.00 - Pure hypercholesterolemia, unspecified, M81.0 - Age-related osteoporosis without current pathological fracture, Z13.0 - Encounter for screening for diseases of the blood and blood-forming organs and certain disorders involving the immune mechanism, Z87.898 - Personal history of other specified conditions TSH reflex Free T4 6 Months E78.00 - Pure hypercholesterolemia, unspecified, M81.0 - Age-related osteoporosis without current pathological fracture, Z13.0 - Encounter for screening for diseases of the blood and blood-forming organs and certain disorders involving the immune mechanism, Z87.898 - Personal history of other specified conditions Vitamin D 25-OH (D2 and D3) 6 Months E78.00 - Pure hypercholesterolemia, unspecified, M81.0 - Age-related osteoporosis without current pathological fracture, Z13.0 - Encounter for screening for diseases of the blood and blood- forming organs and certain disorders involving the immune mechanism, Z87.898 - Personal history of other specified conditions
[2025-03-15 13:48] VITALS: BP 124/78; PULSE 77; RESP 16; TEMP 36.6; O2SAT 99; BMI 21.2
--- OUTSIDE RECORDS SUMMARY | 2025-03-15 16:09 | XMS_ITS | Patient Health Record ---
Author Organization [facility] Address [address] [place] [address] Care Team Providers Care Hide Worker Name Role Phone Luis (RETIRED) Judah RAGLAND Primary Care Provide r Efrem Maldonado Unavailable [phone] Allergies Allergen (clinical drug ingredient) Drug/Non Drug [...] Problem Status W/U Status Risk Notes Problem Screening for malignant neoplasm of colon (906517756) Encounter for screening for malignant neoplasm of colon (Z12.11) Active confirmed Problem History of adenomatous polyp of colon (241183814) History of adenomatous polyp of colon (Z86.010) Active confirmed Problem Screening for malignant neoplasm of rectum (421473577) Encounter for screening for malignant neoplasm of rectum (Z12.12) Active confirmed Problem Preprocedural examination (524903709532142) Preprocedural examination (Z01.818) Active confirmed Problem History of polyp of colon (situation) (345790339) History of colon polyps (Z86.010) Active confirmed Problem USP current use of non-steroidal anti-inflammatory drug (587849769513766) Encntr long-term NSAID use (Z79.1) Active confirmed Problem Diverticulosis of colon (465920220) Diverticulosis of colon (K57.30) Active confirmed Problem Abnormal feces (080504125) Positive colorectal cancer screening using Cologuard test (R19.5) Active confirmed Plan Of Treatment Future Test Test Name Order Date COLONOSCOPY 12/04/2015 COLONOSCOPY 09/22/2021 COLONOSCOPY 11/17/2021 Insurance Providers Payer Name Payer Address Payer Phone Subscriber Number Group Number Insured Name Patient Relationship to Insured Coverage Start Date Coverage End Date MEDICARE OF [place] [address] [place] [id number] [phone] [id number] MARIO ALBERTO LOU Self - patient is the insured [facility] referral [id number] [place] [address] [id number] MARIO ALBERTO LOU Self - patient is the insured Medical (General) History Medical History History ICD Code Screening colonoscopy in 200 5 with removal of a tubular adenoma; followup colonoscopy 08-10-2010 with removal of a small tubular adenoma--also noted to have some sigmoid diverticulosis and internal hemorrhoids; negative colonoscopy in 02/2016 Denies [place],DM,CVA,Lung disease,renal dise ase Arthritis in knees Surgical History Surgery Date(Month/Year) Right hip replacement 2004 Hysterectomy, bladder suspension 2015 Cataracts bilateral
== END 2025-03-15 14:10 | disposition home or self-care (01) ==
LOC: HO.HMCFM 13:41
PROVIDERS: PCP Internal Medicine; Visit Provider Internal Medicine
DX: E78.00 Pure hypercholesterolemia, unspecified (principal); M81.0 Age-related osteoporosis without current pathological fracture; F41.9 Anxiety disorder, unspecified

== ENCOUNTER → 2025-03-15 13:40 | Outpatient (BNVA) | payer MEDICARE, OTHER, SELFPAY | PROVIDERS: PCP Internal Medicine; Visit Provider Internal Medicine | DX: E78.00 Pure hypercholesterolemia, unspecified (principal); M81.0 Age-related osteoporosis without current pathological fracture; F41.9 Anxiety disorder, unspecified | CPT/HCPCS: 96127; 99212 ==